=== PATIENT | female | born 1960 | race Two or more races ===

== ENCOUNTER 2021-04-22 22:34 | Emergency (ER) | payer MEDICAID, OTHER ==
[~2021-04-22] VITALS: Ht 154.9 cm; Wt 90.7 kg
[2021-04-22 23:50] LABS: Basophils # (auto) 0.1 10 ^3/uL (0-0.2); Basophils % (auto) 0.7 % (0.0-2.0); Eosinophils # (auto) 0.2 10 ^3/uL (0-0.8); Eosinophils % (auto) 2.3 % (0.0-7.0); Hematocrit 35.1 % (36.0-46.0); Hemoglobin 11.7 g/dL (12.2-16.2); Lymphocytes # (auto) 2.4 10 ^3/uL (0.4-5.4); Lymphocytes % (auto) 29.1 % (10.0-50.0); Mean Corpuscular Hemoglobin 33.6 pg (28.0-32.0); Mean Corpuscular Hgb Conc. 33.4 g/dL (32.0-36.0); Mean Corpuscular Volume 100.5 fL (80.0-100.0); Monocytes # (auto) 0.7 10 ^3/uL (0-1.3); Monocytes % (auto) 8.5 % (0.0-12.0); Neutrophils # (auto) 4.9 10 ^3/uL (1.6-8.6); Neutrophils % (auto) 59.4 % (37.0-80.0); Nucleated Red Blood Cells % 0.2 %; Platelet Count (auto) 317 10^3/uL (140-450); Red Blood Cells 3.49 10^6/uL (4.0-5.20); White Blood Cell 8.3 10^3/uL (4.4-10.8)
[2021-04-23 00:02] LABS: Urine Amorphous Crystal FEW /hpf (None Seen); Urine Bacteria FEW /hpf (None Seen); Urine Blood Negative /uL (Negative); Urine Hyaline Cast FEW /lpf (0 - 2); Urine Mucus FEW (None Seen); Urine Specific Gravity 1.025 (1.001-1.035); Urine WBC 52 /hpf (0 - 5)
[2021-04-23 00:10] LABS: Alanine Aminotransferase 137 U/L (13-56); Albumin 3.8 g/dL (3.4-5.0); Amylase 95 U/L (25-115); Anion Gap 7 (5-15); Aspartate Aminotransferase 195 U/L (15-37); BUN/Creatinine Ratio 22.7; Blood Urea Nitrogen 27 mg/dL (7-18); Calcium 8.9 mg/dL (8.5-10.1); Carbon Dioxide 25 mmol/L (21-32); Chloride 105 mmol/L (98-107); GFR African American 59 mL/min; GFR Non-African American 49 mL/min; Glucose 115 mg/dL (74-106); Lipase 351 U/L (73-393); Potassium 4.6 mmol/L (3.5-5.1); Sodium 137 mmol/L (136-145)
[2021-04-23 00:15] LABS: Alkaline Phosphatase 108 U/L (45-117); Bilirubin, Total 0.5 mg/dL (0.2-1.0); Total Protein 7.2 g/dL (6.4-8.2)
[2021-04-23 01:27] VITALS: BP 112/72
== END 2021-04-23 02:35 | disposition home or self-care (01) ==
LOC: EDBD 22:34 → ER 22:39
DX: N20.0 Calculus of kidney (principal); N39.0 Urinary tract infection, site not specified; I10 Essential (primary) hypertension; Z90.49 Acquired absence of other specified parts of digestive tract; Z88.1 Allergy status to other antibiotic agents; Z88.6 Allergy status to analgesic agent
CPT/HCPCS: 36415; 71045; 74176; 80053; 81001; 82150; 83605; 83690; 84484; 85025; 87086; 93005

== ENCOUNTER 2021-05-17 22:44 | Inpatient (IN) | payer MEDICAID ==
[~2021-05-17] VITALS: Ht 154.9 cm; Wt 89.5 kg
[2021-05-17 23:36] LABS: Eosinophils # (auto) 0 10 ^3/uL (0-0.8); Eosinophils % (auto) 0.6 % (0.0-7.0); Mean Corpuscular Hemoglobin 34.4 pg (28.0-32.0); Mean Corpuscular Hgb Conc. 34.2 g/dL (32.0-36.0); Monocytes # (auto) 0.4 10 ^3/uL (0-1.3); Neutrophils # (auto) 5.4 10 ^3/uL (1.6-8.6); Platelet Count (auto) 355 10^3/uL (140-450); White Blood Cell 8.1 10^3/uL (4.4-10.8)
[2021-05-17 23:37] LABS: Basophils # (auto) 0 10 ^3/uL (0-0.2); Basophils % (auto) 0.5 % (0.0-2.0); Hematocrit 35.5 % (36.0-46.0); Hemoglobin 12.1 g/dL (12.2-16.2); Lymphocytes # (auto) 2.2 10 ^3/uL (0.4-5.4); Lymphocytes % (auto) 26.8 % (10.0-50.0); Mean Corpuscular Volume 100.5 fL (80.0-100.0); Monocytes % (auto) 5.6 % (0.0-12.0); Neutrophils % (auto) 66.5 % (37.0-80.0); Nucleated Red Blood Cells % 0.1 %; Red Blood Cells 3.53 10^6/uL (4.0-5.20); Red Cell Distribution Width 15.6 % (11.8-14.3)
[2021-05-17 23:53] LABS: BUN/Creatinine Ratio 23.4; Calcium 9.2 mg/dL (8.5-10.1); Potassium 3.8 mmol/L (3.5-5.1)
[2021-05-17 23:56] LABS: Total Protein 7.3 g/dL (6.4-8.2)
[2021-05-18] VITALS (23 sets, daily range): BP systolic 83–195; BP diastolic 37–185
[2021-05-18 00:07] LABS: Urine Bacteria FEW /hpf (None Seen); Urine Blood Negative /uL (Negative); Urine Mucus FEW (None Seen); Urine Specific Gravity 1.028 (1.001-1.035); Urine WBC 10 /hpf (0 - 5)
[2021-05-18] MEDS ORDERED: ONDANSETRON HCL 4 MG/2 ML VIAL IV ONE ×3 (01:00→03:45)
[2021-05-18] MEDS ORDERED: MORPHINE SULFATE 4 MG/ML SYR/VIAL IV ONE ×3 (01:00→05:15)
[2021-05-18] MEDS ORDERED: ALUM & MAG HYDROX-SIMETH LIQ(MAALOX) 30 ML PO ONE (01:15)
[2021-05-18] MEDS ORDERED: FAMOTIDINE (10MG/ML) 2ML VL IV ONE (01:15)
[2021-05-18] MEDS ORDERED: LIDOCAINE VISCOUS 2% 15ML UD PO ONE (01:15)
[2021-05-18] MEDS ORDERED: DONNATAL 5ml ORAL Elix (BELLADONNA ALK-PHENOBARB) PO ONE (01:15)
[2021-05-18 04:28] LABS: Amylase 87 U/L (25-115); Lipase 427 U/L (73-393)
[2021-05-18] MEDS ORDERED: DOCUSATE SOD 100 MG CAP PO PRN (06:00)
[2021-05-18] MEDS ORDERED: NITROGLYCERIN 0.4 MG SL TAB SL PRN (06:00)
[2021-05-18] MEDS ORDERED: SODIUM CHLORIDE 0.9% 1,000 ML IV SCH (06:00)
[2021-05-18] MEDS ORDERED: ACETAMINOPHEN 325 MG TAB PO PRN (06:00)
[2021-05-18] MEDS ORDERED: MORPHINE SULF INJ 2 MG/ML SYRINGE 1ML IV PRN (06:00)
[2021-05-18] MEDS ORDERED: hydrALAZINE HCL 20 MG/ML VL IV PRN (06:15)
[2021-05-18 07:41] LABS: Basophils # (auto) 0 10 ^3/uL (0-0.2); Eosinophils # (auto) 0 10 ^3/uL (0-0.8); Hemoglobin 12.8 g/dL (12.2-16.2); Monocytes # (auto) 0 10 ^3/uL (0-1.3); Nucleated Red Blood Cells % 0.1 %; Red Cell Distribution Width 15.7 % (11.8-14.3); White Blood Cell 3.7 10^3/uL (4.4-10.8)
[2021-05-18 07:43] LABS: Basophils % (auto) 1.2 % (0.0-2.0); Hematocrit 37.5 % (36.0-46.0); Lymphocytes # (auto) 0.5 10 ^3/uL (0.4-5.4); Lymphocytes % (auto) 13.6 % (10.0-50.0); Mean Corpuscular Hemoglobin 34.4 pg (28.0-32.0); Mean Corpuscular Hgb Conc. 34.1 g/dL (32.0-36.0); Mean Corpuscular Volume 100.9 fL (80.0-100.0); Monocytes % (auto) 0.7 % (0.0-12.0); Neutrophils # (auto) 3.1 10 ^3/uL (1.6-8.6); Neutrophils % (auto) 83.5 % (37.0-80.0); Platelet Count (auto) 334 10^3/uL (140-450); Red Blood Cells 3.72 10^6/uL (4.0-5.20)
[2021-05-18 07:58] LABS: Albumin 3.9 g/dL (3.4-5.0); Calcium 9.3 mg/dL (8.5-10.1); Potassium 3.3 mmol/L (3.5-5.1)
[2021-05-18] MEDS ORDERED: PROMETHAZINE HCL 25 MG/ML 1ML IV ONE (08:00)
[2021-05-18 08:07] LABS: BUN/Creatinine Ratio 19.7; Bilirubin, Total 3.9 mg/dL (0.2-1.0); Total Protein 7.1 g/dL (6.4-8.2)
[2021-05-18] MEDS ORDERED: ACETAMINOPHEN 650 MG RECT SUPP PR ONE ×2 (08:22→08:30)
[2021-05-18] MEDS ORDERED: POTASSIUM CHLORIDE 40 MEQ, LIDOCAINE 1% (LOCAL ANESTH.) 4 ML in SODIUM CHL 0.9% 250 ML IV ONE (09:00)
[2021-05-18] MEDS ORDERED: cefTRIAXone 1GM/50ML D5W 50 ML IV SCH (09:00)
[2021-05-18] MEDS: ZINC SULFATE 220mg CAP or TAB PO SCH (09:31)
[2021-05-18] MEDS: MULTIPLE VITAMIN TAB PO SCH (09:31)
[2021-05-18] MEDS: ASCORBIC ACID 500 MG TAB PO SCH ×2 (09:31→22:00)
[2021-05-18 09:54] LABS: Lactic Acid w/Reflex 4.5 mmol/L (0.4-2.0)
[2021-05-18] MEDS ORDERED: LISINOPRIL 10 MG TAB PO SCH (10:00)
[2021-05-18] MEDS ORDERED: FAMOTIDINE (10MG/ML) 2ML VL IV SCH (10:00)
[2021-05-18] MEDS: HEPARIN SODIUM (PORCINE) 5000 UNITS/ML 1ML VIAL SC SCH ×2 (10:08→22:00)
[2021-05-18] MEDS ORDERED: NOREPINEPHRINE 8 MG/250ML KIT 250 ML IV ONE (12:56)
[2021-05-18] MEDS: NOREPINEPHRINE 8 MG/250ML KIT 250 ML IV SCH ×2 (13:07→18:30)
[2021-05-18] MEDS ORDERED: CEFEPIME 1 GM in SODIUM CHL 0.9% 50 ML IV ONE (14:15)
[2021-05-18] MEDS ORDERED: LACTATED RINGER'S 1,000 ML IV SCH (14:15)
[2021-05-18] MEDS: MORPHINE SULF INJ 2 MG/ML SYRINGE 1ML IV PRN (15:13)
[2021-05-18] MEDS ORDERED: EPINEPHrine HCL 250 ML IV ONE (16:10)
[2021-05-18] MEDS: EPINEPHrine HCL 250 ML IV SCH ×2 (16:17→18:30)
[2021-05-18] MEDS ORDERED: SUCCINYLCHOLINE CHLORIDE 20 MG/ML 10ML VIAL IV ONE ×3 (16:42→17:00)
[2021-05-18] MEDS ORDERED: ETOMIDATE (2MG/ML) 20ML VIAL IV ONE ×3 (16:42→17:00)
[2021-05-18 16:44] LABS: Alcohol, Urine < 3.0 mg/dL (0-10); Amphetamine Screen, Urine NEGATIVE (NEGATIVE); Barbiturate Scree,Urine NEGATIVE (NEGATIVE); Benzodiazephine Screen, Urine NEGATIVE (NEGATIVE); Cannabinoid Screen, Urine NEGATIVE (NEGATIVE); Cocaine Screen, Urine NEGATIVE (NEGATIVE); Phencyclidine Screen, Urine NEGATIVE (NEGATIVE)
[2021-05-18] MEDS ORDERED: MIDAZOLAM DRIP 50 mg/50mL 50 ML IV ONE (16:44)
[2021-05-18] MEDS ORDERED: MIDAZOLAM DRIP 50 mg/50mL 50 ML IV SCH (16:45)
[2021-05-18] MEDS: MIDAZOLAM DRIP 50 mg/50mL 50 ML IV SCH ×2 (16:49→18:30)
[2021-05-18 16:53] LABS: Opiate Scree,Urine POSITIVE (NEGATIVE)
[2021-05-18] MEDS ORDERED: fentaNYL Drip 2500mCg/250mlNS 250 ML IV ONE (16:59)
[2021-05-18] MEDS: fentaNYL Drip 2500mCg/250mlNS 250 ML IV SCH ×2 (17:27→18:30)
[2021-05-18] MEDS: VASOPRESSIN 50 UNITS in D5W 5% 247.5 ML IV SCH ×2 (17:48→18:30)
[2021-05-18] MEDS ORDERED: PHENYLEPHRINE IV 250 ML IV SCH (18:15)
[2021-05-18] MEDS ORDERED: SODIUM BICARBONATE 8.4% INJ 50ML SYRINGE ONE (18:20)
[2021-05-18] MEDS ORDERED: PHENYLEPHRINE IV 250 ML IV ONE ×2 (18:39→22:33)
[2021-05-18] MEDS ORDERED: SODIUM BICARBONATE 8.4 % INJ 50ML VIAL IV ONE (18:45)
[2021-05-18] MEDS: LINEZOLID 600MG/300ML 300 ML IV SCH (19:00)
[2021-05-18] MEDS: SODIUM BICARBONATE 50ML VIAL 150 ML in D5W 5% 1,000 ML IV SCH ×2 (19:00→20:00)
[2021-05-18] MEDS: SODIUM BICARBONATE 8.4% INJ 50ML SYRINGE ONE ×2 (19:06→19:14)
[2021-05-18 19:40] LABS: Lactic Acid w/Reflex 13.3 mmol/L (0.4-2.0)
[2021-05-18 19:47] LABS: INR 1.2 (0.9-1.15); Partial Thromboplastin Time 35.5 sec (23.0-31.2)
[2021-05-18] MEDS: EPINEPHrine HCL INJECTION 8 MG in D5W 5% 242 ML IV SCH (20:00)
[2021-05-18] MEDS: NOREPINEPHRINE BITARTRATE 16 MG in SODIUM CHL 0.9% 234 ML IV SCH (20:00)
[2021-05-18 20:52] LABS: Basophils # (auto) 0 10 ^3/uL (0-0.2); Eosinophils # (auto) 0.1 10 ^3/uL (0-0.8); Monocytes # (auto) 0.2 10 ^3/uL (0-1.3); Monocytes % (auto) 1.2 % (0.0-12.0); Neutrophils # (auto) 13.4 10 ^3/uL (1.6-8.6); Red Blood Cells 3.23 10^6/uL (4.0-5.20)
[2021-05-18 20:54] LABS: Basophils % (auto) 0.3 % (0.0-2.0); Eosinophils % (auto) 0.8 % (0.0-7.0); Hemoglobin 11.1 g/dL (12.2-16.2); Lymphocytes % (auto) 6.5 % (10.0-50.0); Mean Corpuscular Hemoglobin 34.3 pg (28.0-32.0); Mean Corpuscular Hgb Conc. 32.5 g/dL (32.0-36.0); Mean Corpuscular Volume 105.5 fL (80.0-100.0); Neutrophils % (auto) 91.2 % (37.0-80.0); Nucleated Red Blood Cells % 0.2 %; Platelet Count (auto) 316 10^3/uL (140-450); Red Cell Distribution Width 16.7 % (11.8-14.3); White Blood Cell 14.7 10^3/uL (4.4-10.8)
[2021-05-18 20:57] LABS: Albumin 2.4 g/dL (3.4-5.0); BUN/Creatinine Ratio 9.7; Calcium 7.3 mg/dL (8.5-10.1); Magnesium 1.5 mg/dL (1.6-2.6); Potassium 3.5 mmol/L (3.5-5.1)
[2021-05-18 21:00] LABS: Bilirubin, Total 3.2 mg/dL (0.2-1.0); Lactic Acid w/Reflex 14.4 mmol/L (0.4-2.0); Total Protein 5.3 g/dL (6.4-8.2)
[2021-05-18 21:08] LABS: INR 1.2 (0.9-1.15); Partial Thromboplastin Time 33.6 sec (23.0-31.2)
[2021-05-18] MEDS: CEFEPIME 1 GM in SODIUM CHL 0.9% 50 ML IV SCH (22:00)
[2021-05-18] MEDS: HYDROCORTISONE SOD SUCC 100 MG/2ML INJ VIAL IV SCH (22:00)
[2021-05-18] MEDS ORDERED: PHENYLEPHRINE HCL 10 MG/ML VL ONE (22:33)
[2021-05-18] MEDS: PHENYLEPHRINE INJ 40 MG in SODIUM CHL 0.9% 246 ML IV SCH (22:48)
[2021-05-18] MEDS ORDERED: MAGNESIUM SULFATE 1GM/100ML 200 ML IV ONE (23:30)
[2021-05-19] VITALS (85 sets, daily range): BP systolic 81–181; BP diastolic 46–154
[2021-05-19] MEDS ORDERED: SODIUM BICARBONATE 8.4 % INJ 50ML VIAL IV ONE (02:15)
[2021-05-19] MEDS: MAGNESIUM SULFATE 1GM/100ML 100 ML IV SCH ×2 (03:00→04:00)
[2021-05-19 04:43] LABS: Hematocrit 34.4 % (36.0-46.0); Hemoglobin 11.7 g/dL (12.2-16.2); Mean Corpuscular Hemoglobin 34.9 pg (28.0-32.0); Mean Corpuscular Hgb Conc. 34.1 g/dL (32.0-36.0); Mean Corpuscular Volume 102.3 fL (80.0-100.0); Platelet Count (auto) 275 10^3/uL (140-450); Red Blood Cells 3.36 10^6/uL (4.0-5.20); Red Cell Distribution Width 16.3 % (11.8-14.3); White Blood Cell 15.9 10^3/uL (4.4-10.8)
[2021-05-19 04:59] LABS: INR 1.34 (0.9-1.15); Partial Thromboplastin Time 34.6 sec (23.0-31.2)
[2021-05-19 05:02] LABS: Basophils % (manual) 0 (0.0-2.0); Blast Cells 0; Eosinophils % (manual) 0 (0-7); Promyelocytes % 0; Reactive Lymphocytes 0
[2021-05-19 05:14] LABS: Albumin 2.4 g/dL (3.4-5.0); Amylase 499 U/L (25-115); Anion Gap 21 (5-15); Blood Urea Nitrogen 39 mg/dL (7-18); Calcium 7.1 mg/dL (8.5-10.1); Carbon Dioxide 14 mmol/L (21-32); Chloride 105 mmol/L (98-107); Glucose 381 mg/dL (74-106); Potassium 3.5 mmol/L (3.5-5.1); Sodium 140 mmol/L (136-145)
[2021-05-19 05:23] LABS: Alanine Aminotransferase 454 U/L (13-56); Alkaline Phosphatase 175 U/L (45-117); Aspartate Aminotransferase 361 U/L (15-37); Bilirubin, Total 3.1 mg/dL (0.2-1.0); GFR African American 17 mL/min; GFR Non-African American 14 mL/min; Lipase 1509 U/L (73-393); Total Protein 5.2 g/dL (6.4-8.2)
[2021-05-19 05:30] LABS: CRP High Sensitivity > 19 mg/dL (< 0.3)
[2021-05-19] MEDS: LINEZOLID 600MG/300ML 300 ML IV SCH ×3 (07:00→07:08)
[2021-05-19] MEDS: MIDAZOLAM DRIP 50 mg/50mL 50 ML IV SCH ×5 (07:09→22:30)
[2021-05-19 07:16] LABS: Band Neutrophils % (manual) 37; Lymphocytes % (manual) 1 (10.0-50.0); Metamyelocytes % 1; Monocytes % (manual) 5 (0-12); Myelocytes % 3
[2021-05-19] MEDS ORDERED: VASOPRESSIN 20 UNIT/ML ONE (07:29)
[2021-05-19] MEDS: NOREPINEPHRINE BITARTRATE 16 MG in SODIUM CHL 0.9% 234 ML IV SCH ×2 (07:30→14:42)
[2021-05-19] MEDS: VASOPRESSIN 50 UNITS in D5W 5% 247.5 ML IV SCH (07:40)
[2021-05-19] MEDS: CEFEPIME 1 GM in SODIUM CHL 0.9% 50 ML IV SCH ×2 (09:26→22:00)
[2021-05-19] MEDS: HYDROCORTISONE SOD SUCC 100 MG/2ML INJ VIAL IV SCH ×2 (09:34→22:23)
[2021-05-19] MEDS: FAMOTIDINE (10MG/ML) 2ML VL IV SCH (09:34)
[2021-05-19] MEDS: ASCORBIC ACID 500 MG TAB PO SCH ×2 (10:00→22:23)
[2021-05-19] MEDS: ZINC SULFATE 220mg CAP or TAB PO SCH (10:00)
[2021-05-19] MEDS: MULTIPLE VITAMIN TAB PO SCH (10:00)
[2021-05-19] MEDS ORDERED: OPTISON 3ml Vial for INJ IV ONE (10:49)
[2021-05-19] MEDS: HEPARIN SODIUM (PORCINE) 5000 UNITS/ML 1ML VIAL SC SCH ×2 (10:49→22:24)
[2021-05-19] MEDS ORDERED: DEXTROSE (50%) 50ML SYRG IV PRN (11:45)
[2021-05-19] MEDS ORDERED: INSULIN LANTUS (GLARGINE) 1 /0.01ml (100units/ml) SC ONE (11:45)
[2021-05-19] MEDS: ACCU-CHEK COMFORT CURVE STRIP VI SCH ×8 (11:55→22:52)
[2021-05-19 12:20] LABS: BUN/Creatinine Ratio 11.9; Calcium 7.4 mg/dL (8.5-10.1); Potassium 3.2 mmol/L (3.5-5.1)
[2021-05-19] MEDS: InsuLIN R (HUMAN) 100 UNITS in SODIUM CHL 0.9% 99 ML IV SCH ×3 (12:34→18:30)
[2021-05-19] MEDS: PHENYLEPHRINE INJ 40 MG in SODIUM CHL 0.9% 246 ML IV SCH ×2 (12:40→16:00)
[2021-05-19] MEDS: SODIUM BICARBONATE 50ML VIAL 150 ML in D5W 5% 1,000 ML IV SCH ×2 (14:30→22:00)
[2021-05-19] MEDS: EPINEPHrine HCL INJECTION 8 MG in D5W 5% 242 ML IV SCH (16:00)
[2021-05-19] MEDS: SODIUM CHLORIDE 0.9% 1,000 ML IV SCH (17:30)
[2021-05-19] MEDS ORDERED: POTASSIUM CHL 10MEQ/100ML 300 ML IV PRN (17:45)
[2021-05-19] MEDS ORDERED: POTASSIUM CHL 20MEQ/100ML 100 ML IV PRN (17:45)
[2021-05-19] MEDS ORDERED: POTASSIUM CHL 20MEQ/100ML 200 ML IV PRN (17:45)
[2021-05-19] MEDS ORDERED: MAGNESIUM SULFATE 1GM/100ML 200 ML IV PRN (17:45)
[2021-05-19] MEDS: D5W/SOD CHL 0.45%/KCL 20MEQ 1,000 ML IV SCH (18:43)
[2021-05-19 18:57] LABS: Anion Gap 17 (5-15); BUN/Creatinine Ratio 11.7; Blood Urea Nitrogen 40 mg/dL (7-18); Calcium 6.8 mg/dL (8.5-10.1); Carbon Dioxide 21 mmol/L (21-32); Chloride 100 mmol/L (98-107); GFR African American 18 mL/min; GFR Non-African American 14 mL/min; Glucose 269 mg/dL (74-106); Potassium 3.9 mmol/L (3.5-5.1); Sodium 138 mmol/L (136-145)
[2021-05-19] MEDS: MUPIROCIN 2% OINT 15gm or 22gm EACHNOSTRI SCH (22:54)
[2021-05-19] MEDS ORDERED: SODIUM CHLORIDE 0.9% 1,000 ML IV SCH (23:45)
[2021-05-19 23:54] LABS: BUN/Creatinine Ratio 12.2; Calcium 6.8 mg/dL (8.5-10.1); Potassium 3.4 mmol/L (3.5-5.1)
[2021-05-20] VITALS (102 sets, daily range): BP systolic 80–175; BP diastolic 8–155
[2021-05-20] MEDS: ACCU-CHEK COMFORT CURVE STRIP VI SCH ×16 (00:08→22:34)
[2021-05-20] MEDS ORDERED: POTASSIUM CHL 20MEQ/100ML 0 ML IV ONE (00:11)
[2021-05-20] MEDS ORDERED: POTASSIUM CHL 10MEQ/100ML 100 ML IV PRN (01:45)
[2021-05-20] MEDS: CEFEPIME 1 GM in SODIUM CHL 0.9% 50 ML IV SCH ×2 (03:59→22:00)
[2021-05-20 04:22] LABS: BUN/Creatinine Ratio 12.5; Calcium 6.7 mg/dL (8.5-10.1); Potassium 3.9 mmol/L (3.5-5.1)
[2021-05-20] MEDS: fentaNYL Drip 2500mCg/250mlNS 250 ML IV SCH ×2 (04:35→20:10)
[2021-05-20] MEDS: D5W/SOD CHL 0.45%/KCL 20MEQ 1,000 ML IV SCH ×3 (07:05→15:24)
[2021-05-20] MEDS: SODIUM CHLORIDE 0.9% 1,000 ML IV SCH ×5 (07:05→22:00)
[2021-05-20 08:21] LABS: BUN/Creatinine Ratio 13.2; Calcium 6.8 mg/dL (8.5-10.1); Potassium 3.8 mmol/L (3.5-5.1)
[2021-05-20] MEDS: HEPARIN SODIUM (PORCINE) 5000 UNITS/ML 1ML VIAL SC SCH ×2 (10:01→22:33)
[2021-05-20] MEDS: ASCORBIC ACID 500 MG TAB PO SCH ×2 (10:02→22:33)
[2021-05-20] MEDS: ZINC SULFATE 220mg CAP or TAB PO SCH (10:02)
[2021-05-20] MEDS: INSULIN LANTUS (GLARGINE) 1 /0.01ml (100units/ml) SC SCH (10:02)
[2021-05-20] MEDS: MULTIPLE VITAMIN TAB PO SCH (10:02)
[2021-05-20] MEDS: MUPIROCIN 2% OINT 15gm or 22gm EACHNOSTRI SCH ×2 (10:02→22:00)
[2021-05-20] MEDS: FAMOTIDINE (10MG/ML) 2ML VL IV SCH (10:02)
[2021-05-20] MEDS: HYDROCORTISONE SOD SUCC 100 MG/2ML INJ VIAL IV SCH ×2 (10:02→22:32)
[2021-05-20] MEDS ORDERED: CALCIUM GLUC 1,000mg/50ml-NS 50 ML IV ONE (11:45)
[2021-05-20] MEDS: ALBUMIN 25% 50 ML IV SCH ×2 (11:58→20:23)
[2021-05-20] MEDS: MIDAZOLAM DRIP 50 mg/50mL 50 ML IV SCH ×3 (12:43→19:38)
[2021-05-20] MEDS: VASOPRESSIN 50 UNITS in D5W 5% 247.5 ML IV SCH (15:24)
[2021-05-20] MEDS: NOREPINEPHRINE BITARTRATE 16 MG in SODIUM CHL 0.9% 234 ML IV SCH (16:17)
[2021-05-20] MEDS: InsuLIN R (HUMAN) 100 UNITS in SODIUM CHL 0.9% 99 ML IV SCH (17:45)
[2021-05-20] MEDS: EPINEPHrine HCL INJECTION 8 MG in D5W 5% 242 ML IV SCH (20:00)
[2021-05-20] MEDS ORDERED: InsuLIN R (HUMAN) 100 UNITS in SODIUM CHL 0.9% 99 ML IV SCH (20:15)
[2021-05-21] VITALS (96 sets, daily range): BP systolic 82–166; BP diastolic 49–114
[2021-05-21] MEDS: CEFEPIME 1 GM in SODIUM CHL 0.9% 50 ML IV SCH ×2 (01:54→22:21)
[2021-05-21] MEDS: ACCU-CHEK COMFORT CURVE STRIP VI SCH ×11 (01:54→20:00)
[2021-05-21] MEDS: SODIUM CHLORIDE 0.9% 1,000 ML IV SCH ×5 (02:15→15:57)
[2021-05-21] MEDS: ALBUMIN 25% 50 ML IV SCH (03:13)
[2021-05-21] MEDS: MIDAZOLAM DRIP 50 mg/50mL 50 ML IV SCH ×3 (03:20→17:07)
[2021-05-21 03:57] LABS: Hematocrit 28.7 % (36.0-46.0); Mean Corpuscular Hemoglobin 34.1 pg (28.0-32.0); Mean Corpuscular Hgb Conc. 34.9 g/dL (32.0-36.0); White Blood Cell 16.4 10^3/uL (4.4-10.8)
[2021-05-21 04:02] LABS: Mean Corpuscular Volume 97.8 fL (80.0-100.0); Platelet Count (auto) 128 10^3/uL (140-450); Red Blood Cells 2.93 10^6/uL (4.0-5.20); Red Cell Distribution Width 16.4 % (11.8-14.3)
[2021-05-21 04:11] LABS: Albumin 2.1 g/dL (3.4-5.0); Calcium 7.4 mg/dL (8.5-10.1); Potassium 3.4 mmol/L (3.5-5.1)
[2021-05-21 04:13] LABS: Bilirubin, Total 1.7 mg/dL (0.2-1.0); Total Protein 5.2 g/dL (6.4-8.2)
[2021-05-21 04:43] LABS: Basophils % (manual) 0 (0.0-2.0); Blast Cells 0; Eosinophils % (manual) 0 (0-7); Myelocytes % 0; Promyelocytes % 0; Reactive Lymphocytes 0
[2021-05-21 05:44] LABS: Band Neutrophils % (manual) 31; Lymphocytes % (manual) 4 (10.0-50.0); Metamyelocytes % 1; Monocytes % (manual) 2 (0-12)
[2021-05-21] MEDS: ASCORBIC ACID 500 MG TAB PO SCH ×2 (09:33→22:20)
[2021-05-21] MEDS: HEPARIN SODIUM (PORCINE) 5000 UNITS/ML 1ML VIAL SC SCH ×2 (09:33→22:22)
[2021-05-21] MEDS: ZINC SULFATE 220mg CAP or TAB PO SCH (09:33)
[2021-05-21] MEDS: MULTIPLE VITAMIN TAB PO SCH (09:33)
[2021-05-21] MEDS: HYDROCORTISONE SOD SUCC 100 MG/2ML INJ VIAL IV SCH ×2 (09:33→22:20)
[2021-05-21] MEDS: FAMOTIDINE (10MG/ML) 2ML VL IV SCH (09:33)
[2021-05-21] MEDS: INSULIN LANTUS (GLARGINE) 1 /0.01ml (100units/ml) SC SCH (09:34)
[2021-05-21] MEDS: MUPIROCIN 2% OINT 15gm or 22gm EACHNOSTRI SCH ×2 (09:35→22:22)
[2021-05-21] MEDS ORDERED: DEXTROSE (50%) 50ML SYRG IV PRN (13:15)
[2021-05-21] MEDS: POTASSIUM CHL 20MEQ/100ML 100 ML IV SCH ×2 (13:30→15:04)
[2021-05-21] MEDS: InsuLIN REG 1unit/0.01ml Soln (100units/ml) SC SCH ×2 (16:00→20:00)
[2021-05-21] MEDS: VASOPRESSIN 50 UNITS in D5W 5% 247.5 ML IV SCH (16:15)
[2021-05-21] MEDS ORDERED: metroNIDAZOLE 500MG/100ML 100 ML IV ONE (16:45)
[2021-05-21] MEDS: fentaNYL Drip 2500mCg/250mlNS 250 ML IV SCH (17:05)
[2021-05-21] MEDS: metroNIDAZOLE 500MG/100ML 100 ML IV SCH (22:21)
[2021-05-22] VITALS (74 sets, daily range): BP systolic 96–159; BP diastolic 15–99
[2021-05-22] MEDS: ACCU-CHEK COMFORT CURVE STRIP VI SCH ×6 (04:00→20:00)
[2021-05-22] MEDS: InsuLIN REG 1unit/0.01ml Soln (100units/ml) SC SCH ×6 (04:00→20:00)
[2021-05-22 04:21] LABS: Basophils # (auto) 0 10 ^3/uL (0-0.2); Eosinophils # (auto) 0 10 ^3/uL (0-0.8); Hematocrit 26.9 % (36.0-46.0); Hemoglobin 9.5 g/dL (12.2-16.2); Monocytes # (auto) 0.5 10 ^3/uL (0-1.3); Nucleated Red Blood Cells % 0.1 %
[2021-05-22 04:24] LABS: Basophils % (auto) 0.3 % (0.0-2.0); Eosinophils % (auto) 0.2 % (0.0-7.0); Lymphocytes # (auto) 0.8 10 ^3/uL (0.4-5.4); Lymphocytes % (auto) 7.5 % (10.0-50.0); Mean Corpuscular Hemoglobin 34.9 pg (28.0-32.0); Mean Corpuscular Hgb Conc. 35.4 g/dL (32.0-36.0); Mean Corpuscular Volume 98.6 fL (80.0-100.0); Monocytes % (auto) 5.2 % (0.0-12.0); Neutrophils # (auto) 8.7 10 ^3/uL (1.6-8.6); Neutrophils % (auto) 86.8 % (37.0-80.0); Platelet Count (auto) 98 10^3/uL (140-450); Red Blood Cells 2.73 10^6/uL (4.0-5.20); Red Cell Distribution Width 16.2 % (11.8-14.3)
[2021-05-22 04:45] LABS: Potassium 3.3 mmol/L (3.5-5.1)
[2021-05-22 04:54] LABS: Albumin 2.1 g/dL (3.4-5.0); BUN/Creatinine Ratio 20.1; Bilirubin, Total 1.2 mg/dL (0.2-1.0); Calcium 7.4 mg/dL (8.5-10.1)
[2021-05-22] MEDS: metroNIDAZOLE 500MG/100ML 100 ML IV SCH ×3 (05:53→22:28)
[2021-05-22] MEDS ORDERED: POTASSIUM CHL 20MEQ/100ML 100 ML IV ONE (07:15)
[2021-05-22] MEDS: PHENYLEPHRINE INJ 40 MG in SODIUM CHL 0.9% 246 ML IV SCH (07:20)
[2021-05-22] MEDS: HYDROCORTISONE SOD SUCC 100 MG/2ML INJ VIAL IV SCH ×2 (09:47→22:28)
[2021-05-22] MEDS: MULTIPLE VITAMIN TAB PO SCH (09:47)
[2021-05-22] MEDS: ASCORBIC ACID 500 MG TAB PO SCH ×2 (09:48→22:28)
[2021-05-22] MEDS: ZINC SULFATE 220mg CAP or TAB PO SCH (09:49)
[2021-05-22] MEDS: FAMOTIDINE (10MG/ML) 2ML VL IV SCH (10:10)
[2021-05-22] MEDS: HEPARIN SODIUM (PORCINE) 5000 UNITS/ML 1ML VIAL SC SCH ×2 (10:11→22:32)
[2021-05-22] MEDS ORDERED: DEXTROSE (25%) 10 ML SYRG IV ONE (10:30)
[2021-05-22] MEDS: SODIUM CHLORIDE 0.9% 1,000 ML IV SCH ×2 (10:30→20:30)
[2021-05-22] MEDS ORDERED: DEXTROSE (50%) 50ML SYRG IV ONE (11:15)
[2021-05-22] MEDS: CEFEPIME 1 GM in SODIUM CHL 0.9% 50 ML IV SCH ×2 (11:24→22:27)
[2021-05-22] MEDS: MUPIROCIN 2% OINT 15gm or 22gm EACHNOSTRI SCH ×2 (11:24→22:32)
[2021-05-22] MEDS: VASOPRESSIN 50 UNITS in D5W 5% 247.5 ML IV SCH (16:15)
[2021-05-22] MEDS: fentaNYL Drip 2500mCg/250mlNS 250 ML IV SCH (17:15)
[2021-05-23] VITALS (121 sets, daily range): BP systolic 114–280; BP diastolic 54–258
[2021-05-23] MEDS: MORPHINE SULF INJ 2 MG/ML SYRINGE 1ML IV PRN ×5 (01:38→20:30)
[2021-05-23] MEDS: InsuLIN REG 1unit/0.01ml Soln (100units/ml) SC SCH ×6 (04:00→20:00)
[2021-05-23] MEDS: ACCU-CHEK COMFORT CURVE STRIP VI SCH ×6 (04:00→20:00)
[2021-05-23 04:18] LABS: Hematocrit 27.7 % (36.0-46.0); White Blood Cell 8.7 10^3/uL (4.4-10.8)
[2021-05-23 04:21] LABS: Hemoglobin 9.7 g/dL (12.2-16.2); Mean Corpuscular Hemoglobin 34.4 pg (28.0-32.0); Mean Corpuscular Hgb Conc. 34.9 g/dL (32.0-36.0); Mean Corpuscular Volume 98.6 fL (80.0-100.0); Platelet Count (auto) 93 10^3/uL (140-450); Red Blood Cells 2.81 10^6/uL (4.0-5.20); Red Cell Distribution Width 16.4 % (11.8-14.3)
[2021-05-23 04:30] LABS: Basophils % (manual) 0 (0.0-2.0); Blast Cells 0; Eosinophils % (manual) 0 (0-7); Metamyelocytes % 0; Myelocytes % 0; Promyelocytes % 0; Reactive Lymphocytes 0
[2021-05-23 04:37] LABS: Calcium 7.3 mg/dL (8.5-10.1); Potassium 3.6 mmol/L (3.5-5.1)
[2021-05-23 04:41] LABS: Albumin 2.1 g/dL (3.4-5.0); BUN/Creatinine Ratio 25.5
[2021-05-23 04:43] LABS: Bilirubin, Total 0.7 mg/dL (0.2-1.0); Total Protein 5.3 g/dL (6.4-8.2)
[2021-05-23] MEDS: SODIUM CHLORIDE 0.9% 1,000 ML IV SCH (05:00)
[2021-05-23 05:47] LABS: Band Neutrophils % (manual) 5; Lymphocytes % (manual) 8 (10.0-50.0); Monocytes % (manual) 4 (0-12)
[2021-05-23] MEDS: metroNIDAZOLE 500MG/100ML 100 ML IV SCH ×3 (06:01→22:10)
[2021-05-23] MEDS: PHENYLEPHRINE INJ 40 MG in SODIUM CHL 0.9% 246 ML IV SCH ×2 (08:00→10:47)
[2021-05-23] MEDS: EPINEPHrine HCL INJECTION 8 MG in D5W 5% 242 ML IV SCH ×2 (08:00→08:30)
[2021-05-23] MEDS: NOREPINEPHRINE BITARTRATE 16 MG in SODIUM CHL 0.9% 234 ML IV SCH ×2 (08:00→08:30)
[2021-05-23] MEDS: HYDROCORTISONE SOD SUCC 100 MG/2ML INJ VIAL IV SCH ×2 (09:30→22:10)
[2021-05-23] MEDS: MULTIPLE VITAMIN TAB PO SCH (09:30)
[2021-05-23] MEDS: CEFEPIME 1 GM in SODIUM CHL 0.9% 50 ML IV SCH ×2 (09:30→22:10)
[2021-05-23] MEDS: ASCORBIC ACID 500 MG TAB PO SCH ×2 (09:30→22:11)
[2021-05-23] MEDS: ZINC SULFATE 220mg CAP or TAB PO SCH (09:30)
[2021-05-23] MEDS: FAMOTIDINE (10MG/ML) 2ML VL IV SCH (09:30)
[2021-05-23] MEDS: MUPIROCIN 2% OINT 15gm or 22gm EACHNOSTRI SCH ×2 (09:30→22:18)
[2021-05-23] MEDS: HEPARIN SODIUM (PORCINE) 5000 UNITS/ML 1ML VIAL SC SCH ×2 (09:31→22:11)
[2021-05-23] MEDS: fentaNYL Drip 2500mCg/250mlNS 250 ML IV SCH (10:47)
[2021-05-23] MEDS: VASOPRESSIN 50 UNITS in D5W 5% 247.5 ML IV SCH (10:47)
[2021-05-23] MEDS: MIDAZOLAM DRIP 50 mg/50mL 50 ML IV SCH (10:47)
[2021-05-23] MEDS: SOD CHL 0.45% 1,000 ML IV SCH ×2 (13:00→23:01)
[2021-05-23] MEDS: ALPRAZolam 0.25 MG TAB NG PRN (15:34)
[2021-05-23] MEDS: METOPROLOL TARTRATE 1MG/1ML-5ML VIAL IV PRN ×3 (15:45→20:24)
[2021-05-23] MEDS ORDERED: METOPROLOL TARTRATE 1MG/1ML-5ML VIAL IV ONE (16:00)
[2021-05-24] VITALS (112 sets, daily range): BP systolic 97–234; BP diastolic 45–138
[2021-05-24] MEDS: ACCU-CHEK COMFORT CURVE STRIP VI SCH ×7 (04:00→23:40)
[2021-05-24] MEDS: InsuLIN REG 1unit/0.01ml Soln (100units/ml) SC SCH ×7 (04:00→23:40)
[2021-05-24] MEDS: ALPRAZolam 0.25 MG TAB NG PRN (04:39)
[2021-05-24] MEDS: MORPHINE SULF INJ 2 MG/ML SYRINGE 1ML IV PRN (05:09)
[2021-05-24 05:12] LABS: Potassium 3.3 mmol/L (3.5-5.1)
[2021-05-24] MEDS: METOPROLOL TARTRATE 1MG/1ML-5ML VIAL IV PRN (05:15)
[2021-05-24 05:19] LABS: Albumin 2.1 g/dL (3.4-5.0); BUN/Creatinine Ratio 31.3; Calcium 7.7 mg/dL (8.5-10.1)
[2021-05-24] MEDS: metroNIDAZOLE 500MG/100ML 100 ML IV SCH ×3 (05:19→21:29)
[2021-05-24 05:21] LABS: Bilirubin, Total 0.9 mg/dL (0.2-1.0); Total Protein 5.1 g/dL (6.4-8.2)
[2021-05-24] MEDS: SOD CHL 0.45% 1,000 ML IV SCH ×2 (09:00→17:51)
[2021-05-24] MEDS: POTASSIUM CHL 20MEQ/100ML 100 ML IV SCH ×2 (09:15→10:46)
[2021-05-24] MEDS: PHENYLEPHRINE INJ 40 MG in SODIUM CHL 0.9% 246 ML IV SCH (09:20)
[2021-05-24] MEDS: FAMOTIDINE (10MG/ML) 2ML VL IV SCH (09:55)
[2021-05-24] MEDS: HYDROCORTISONE SOD SUCC 100 MG/2ML INJ VIAL IV SCH ×2 (09:55→21:30)
[2021-05-24] MEDS: hydrALAZINE HCL 20 MG/ML VL IV PRN ×2 (09:56→17:51)
[2021-05-24] MEDS: ASCORBIC ACID 500 MG TAB PO SCH ×2 (09:56→21:30)
[2021-05-24] MEDS: MULTIPLE VITAMIN TAB PO SCH (09:56)
[2021-05-24] MEDS: HEPARIN SODIUM (PORCINE) 5000 UNITS/ML 1ML VIAL SC SCH ×2 (09:57→21:31)
[2021-05-24] MEDS: ZINC SULFATE 220mg CAP or TAB PO SCH (09:57)
[2021-05-24] MEDS: NOREPINEPHRINE BITARTRATE 16 MG in SODIUM CHL 0.9% 234 ML IV SCH ×2 (10:40→20:00)
[2021-05-24] MEDS: EPINEPHrine HCL INJECTION 8 MG in D5W 5% 242 ML IV SCH ×2 (10:40→20:00)
[2021-05-24] MEDS: MUPIROCIN 2% OINT 15gm or 22gm EACHNOSTRI SCH (10:46)
[2021-05-24] MEDS: CEFEPIME 1 GM in SODIUM CHL 0.9% 50 ML IV SCH ×2 (10:47→22:00)
[2021-05-24] MEDS: VASOPRESSIN 50 UNITS in D5W 5% 247.5 ML IV SCH (16:14)
[2021-05-24] MEDS: fentaNYL Drip 2500mCg/250mlNS 250 ML IV SCH (16:15)
[2021-05-24] MEDS: MIDAZOLAM DRIP 50 mg/50mL 50 ML IV SCH (16:15)
[2021-05-25] VITALS (107 sets, daily range): BP systolic 103–219; BP diastolic 49–111
[2021-05-25] MEDS: hydrALAZINE HCL 20 MG/ML VL IV PRN ×4 (01:18→21:58)
[2021-05-25] MEDS: MORPHINE SULF INJ 2 MG/ML SYRINGE 1ML IV PRN ×4 (01:48→21:57)
[2021-05-25] MEDS: PHENYLEPHRINE INJ 40 MG in SODIUM CHL 0.9% 246 ML IV SCH ×2 (02:00→17:50)
[2021-05-25] MEDS: InsuLIN REG 1unit/0.01ml Soln (100units/ml) SC SCH ×5 (04:18→20:00)
[2021-05-25] MEDS: ACCU-CHEK COMFORT CURVE STRIP VI SCH ×5 (04:19→20:00)
[2021-05-25 04:56] LABS: Hematocrit 29.5 % (36.0-46.0); Hemoglobin 10.1 g/dL (12.2-16.2); Mean Corpuscular Hemoglobin 34.4 pg (28.0-32.0); Mean Corpuscular Hgb Conc. 34.4 g/dL (32.0-36.0); Mean Corpuscular Volume 100.2 fL (80.0-100.0); Platelet Count (auto) 128 10^3/uL (140-450); Red Blood Cells 2.94 10^6/uL (4.0-5.20); Red Cell Distribution Width 16.8 % (11.8-14.3); White Blood Cell 13.3 10^3/uL (4.4-10.8)
[2021-05-25 04:58] LABS: Albumin 2.1 g/dL (3.4-5.0); BUN/Creatinine Ratio 35.5; Potassium 3.3 mmol/L (3.5-5.1)
[2021-05-25 05:01] LABS: Bilirubin, Total 0.8 mg/dL (0.2-1.0); Total Protein 5.4 g/dL (6.4-8.2)
[2021-05-25 05:08] LABS: Basophils % (manual) 0 (0.0-2.0); Blast Cells 0; Eosinophils % (manual) 0 (0-7); Metamyelocytes % 0; Myelocytes % 0; Promyelocytes % 0
[2021-05-25] MEDS: SOD CHL 0.45% 1,000 ML IV SCH ×3 (06:00→21:56)
[2021-05-25] MEDS: metroNIDAZOLE 500MG/100ML 100 ML IV SCH ×4 (06:17→21:55)
[2021-05-25 06:40] LABS: Band Neutrophils % (manual) 9; Lymphocytes % (manual) 13 (10.0-50.0); Monocytes % (manual) 4 (0-12); Reactive Lymphocytes 1
[2021-05-25] MEDS: POTASSIUM CHL 20MEQ/100ML 100 ML IV SCH ×2 (09:24→11:09)
[2021-05-25] MEDS: CEFEPIME 1 GM in SODIUM CHL 0.9% 50 ML IV SCH ×2 (11:01→22:30)
[2021-05-25] MEDS: ZINC SULFATE 220mg CAP or TAB PO SCH (11:03)
[2021-05-25] MEDS: MULTIPLE VITAMIN TAB PO SCH (11:03)
[2021-05-25] MEDS: ASCORBIC ACID 500 MG TAB PO SCH ×2 (11:03→21:54)
[2021-05-25] MEDS: HYDROCORTISONE SOD SUCC 100 MG/2ML INJ VIAL IV SCH ×2 (11:09→21:54)
[2021-05-25] MEDS: FAMOTIDINE (10MG/ML) 2ML VL IV SCH (11:09)
[2021-05-25] MEDS: HEPARIN SODIUM (PORCINE) 5000 UNITS/ML 1ML VIAL SC SCH ×2 (11:15→21:55)
[2021-05-25] MEDS: ONDANSETRON HCL 4 MG/2 ML VIAL IV PRN (11:18)
[2021-05-25] MEDS: LORazepam 2MG/ML-1ML VIAL IV PRN (14:26)
[2021-05-25] MEDS: fentaNYL Drip 2500mCg/250mlNS 250 ML IV SCH (15:15)
[2021-05-25] MEDS: VASOPRESSIN 50 UNITS in D5W 5% 247.5 ML IV SCH (16:15)
[2021-05-25] MEDS: MIDAZOLAM DRIP 50 mg/50mL 50 ML IV SCH (16:54)
[2021-05-25] MEDS: EPINEPHrine HCL INJECTION 8 MG in D5W 5% 242 ML IV SCH (19:25)
[2021-05-25] MEDS: NOREPINEPHRINE BITARTRATE 16 MG in SODIUM CHL 0.9% 234 ML IV SCH (19:25)
[2021-05-25] MEDS: TEMAZEPAM 15 MG CAP PO PRN (21:59)
[2021-05-26] VITALS (81 sets, daily range): BP systolic 91–206; BP diastolic 49–109
[2021-05-26] MEDS: InsuLIN REG 1unit/0.01ml Soln (100units/ml) SC SCH ×7 (04:00→23:29)
[2021-05-26] MEDS: ACCU-CHEK COMFORT CURVE STRIP VI SCH ×7 (04:00→23:29)
[2021-05-26 04:38] LABS: Hematocrit 28.6 % (36.0-46.0); Hemoglobin 9.8 g/dL (12.2-16.2); Mean Corpuscular Hemoglobin 34.5 pg (28.0-32.0); Mean Corpuscular Hgb Conc. 34.2 g/dL (32.0-36.0); Mean Corpuscular Volume 100.8 fL (80.0-100.0); Platelet Count (auto) 154 10^3/uL (140-450); Red Blood Cells 2.84 10^6/uL (4.0-5.20); Red Cell Distribution Width 17.7 % (11.8-14.3); White Blood Cell 13.6 10^3/uL (4.4-10.8)
[2021-05-26 04:41] LABS: Basophils % (manual) 0 (0.0-2.0); Blast Cells 0; Eosinophils % (manual) 0 (0-7); Promyelocytes % 0; Reactive Lymphocytes 0
[2021-05-26 04:49] LABS: Albumin 2.3 g/dL (3.4-5.0); Calcium 7.8 mg/dL (8.5-10.1); Potassium 3.7 mmol/L (3.5-5.1)
[2021-05-26 04:52] LABS: Bilirubin, Total 0.7 mg/dL (0.2-1.0); Total Protein 5.3 g/dL (6.4-8.2)
[2021-05-26 06:30] LABS: Band Neutrophils % (manual) 1; Lymphocytes % (manual) 6 (10.0-50.0); Metamyelocytes % 1; Monocytes % (manual) 3 (0-12); Myelocytes % 1
[2021-05-26] MEDS: ASCORBIC ACID 500 MG TAB PO SCH ×2 (09:53→22:00)
[2021-05-26] MEDS: HYDROCORTISONE SOD SUCC 100 MG/2ML INJ VIAL IV SCH ×2 (09:53→21:20)
[2021-05-26] MEDS: MULTIPLE VITAMIN TAB PO SCH (09:53)
[2021-05-26] MEDS: SOD CHL 0.45% 1,000 ML IV SCH (09:53)
[2021-05-26] MEDS: FAMOTIDINE (10MG/ML) 2ML VL IV SCH (09:53)
[2021-05-26] MEDS: ZINC SULFATE 220mg CAP or TAB PO SCH (09:53)
[2021-05-26] MEDS: hydrALAZINE HCL 20 MG/ML VL IV PRN ×3 (09:55→23:21)
[2021-05-26] MEDS: LORazepam 2MG/ML-1ML VIAL IV PRN ×2 (09:56→21:20)
[2021-05-26] MEDS: HEPARIN SODIUM (PORCINE) 5000 UNITS/ML 1ML VIAL SC SCH ×2 (10:07→21:24)
[2021-05-26] MEDS: PHENYLEPHRINE INJ 40 MG in SODIUM CHL 0.9% 246 ML IV SCH (11:20)
[2021-05-26] MEDS: CEFEPIME 1 GM in SODIUM CHL 0.9% 50 ML IV SCH ×2 (11:30→23:09)
[2021-05-26] MEDS ORDERED: SODIUM BICARBONATE 8.4 % INJ 50ML VIAL IV ONE (12:30)
[2021-05-26] MEDS ORDERED: EPINEPHrine HCL 0.5 ML NEB NEB PRN (12:30)
[2021-05-26] MEDS ORDERED: EPINEPHrine HCL 0.5 ML NEB NEB ONE (13:15)
[2021-05-26] MEDS ORDERED: EPINEPHrine HCL 0.5 ML NEB ONE (13:18)
[2021-05-26] MEDS: metroNIDAZOLE 500MG/100ML 100 ML IV SCH ×2 (13:29→21:21)
[2021-05-26] MEDS: MORPHINE SULF INJ 2 MG/ML SYRINGE 1ML IV PRN (15:01)
[2021-05-26] MEDS: VASOPRESSIN 50 UNITS in D5W 5% 247.5 ML IV SCH (16:15)
[2021-05-26] MEDS: MIDAZOLAM DRIP 50 mg/50mL 50 ML IV SCH (17:00)
[2021-05-26] MEDS: fentaNYL Drip 2500mCg/250mlNS 250 ML IV SCH (17:02)
[2021-05-26] MEDS: LABETALOL HCL 5 MG/ML 4ML SYRINGE IV PRN ×2 (17:12→21:21)
[2021-05-26] MEDS: ONDANSETRON HCL 4 MG/2 ML VIAL IV PRN (19:33)
[2021-05-26] MEDS: EPINEPHrine HCL INJECTION 8 MG in D5W 5% 242 ML IV SCH (20:00)
[2021-05-26] MEDS: NOREPINEPHRINE BITARTRATE 16 MG in SODIUM CHL 0.9% 234 ML IV SCH (20:00)
[2021-05-27] VITALS (53 sets, daily range): BP systolic 132–194; BP diastolic 67–101
[2021-05-27] MEDS: LABETALOL HCL 5 MG/ML 4ML SYRINGE IV PRN ×3 (02:31→10:03)
[2021-05-27] MEDS: PHENYLEPHRINE INJ 40 MG in SODIUM CHL 0.9% 246 ML IV SCH (04:00)
[2021-05-27] MEDS: InsuLIN REG 1unit/0.01ml Soln (100units/ml) SC SCH ×5 (04:00→20:00)
[2021-05-27] MEDS: ACCU-CHEK COMFORT CURVE STRIP VI SCH ×5 (04:08→20:28)
[2021-05-27 04:39] LABS: Basophils # (auto) 0 10 ^3/uL (0-0.2); Eosinophils # (auto) 0 10 ^3/uL (0-0.8); Lymphocytes % (auto) 5.5 % (10.0-50.0); Monocytes # (auto) 0.8 10 ^3/uL (0-1.3); Red Blood Cells 2.72 10^6/uL (4.0-5.20)
[2021-05-27 04:41] LABS: Basophils % (auto) 0.1 % (0.0-2.0); Hematocrit 27.4 % (36.0-46.0); Hemoglobin 9.4 g/dL (12.2-16.2); Lymphocytes # (auto) 0.8 10 ^3/uL (0.4-5.4); Mean Corpuscular Hemoglobin 34.8 pg (28.0-32.0); Mean Corpuscular Hgb Conc. 34.5 g/dL (32.0-36.0); Mean Corpuscular Volume 100.6 fL (80.0-100.0); Neutrophils # (auto) 13.6 10 ^3/uL (1.6-8.6); Neutrophils % (auto) 89.4 % (37.0-80.0); Platelet Count (auto) 201 10^3/uL (140-450); Red Cell Distribution Width 17.6 % (11.8-14.3); White Blood Cell 15.3 10^3/uL (4.4-10.8)
[2021-05-27 04:54] LABS: Albumin 2.6 g/dL (3.4-5.0); Calcium 8.1 mg/dL (8.5-10.1); Potassium 3.2 mmol/L (3.5-5.1)
[2021-05-27 04:59] LABS: BUN/Creatinine Ratio 32.1; Bilirubin, Total 0.7 mg/dL (0.2-1.0); Total Protein 5.7 g/dL (6.4-8.2)
[2021-05-27] MEDS: metroNIDAZOLE 500MG/100ML 100 ML IV SCH ×3 (05:18→20:29)
[2021-05-27] MEDS: hydrALAZINE HCL 20 MG/ML VL IV PRN (06:37)
[2021-05-27] MEDS: POTASSIUM CHL 20MEQ/100ML 100 ML IV SCH ×2 (08:06→09:51)
[2021-05-27] MEDS: SOD CHL 0.45% 1,000 ML IV SCH (09:24)
[2021-05-27] MEDS: FAMOTIDINE (10MG/ML) 2ML VL IV SCH (09:30)
[2021-05-27] MEDS: HYDROCORTISONE SOD SUCC 100 MG/2ML INJ VIAL IV SCH ×2 (09:30→22:01)
[2021-05-27] MEDS: CEFEPIME 1 GM in SODIUM CHL 0.9% 50 ML IV SCH ×2 (09:35→22:31)
[2021-05-27] MEDS: cloNIDine 0.2 mg/24hr 7DAY PATCH TD SCH (09:36)
[2021-05-27] MEDS: PANTOPRAZOLE 40 MG/10 ML VIAL INJ IV SCH ×2 (09:56→22:00)
[2021-05-27] MEDS: ZINC SULFATE 220mg CAP or TAB PO SCH (09:56)
[2021-05-27] MEDS: HEPARIN SODIUM (PORCINE) 5000 UNITS/ML 1ML VIAL SC SCH ×2 (09:56→22:07)
[2021-05-27] MEDS: ASCORBIC ACID 500 MG TAB PO SCH ×2 (09:57→22:03)
[2021-05-27] MEDS: CARVEDILOL 12.5 MG TAB PO SCH ×2 (09:57→22:03)
[2021-05-27] MEDS: MULTIPLE VITAMIN TAB PO SCH (09:57)
[2021-05-27] MEDS: hydrALAZINE HCL 25 MG TAB PO SCH ×2 (14:00→22:02)
[2021-05-27] MEDS: EPINEPHrine HCL INJECTION 8 MG in D5W 5% 242 ML IV SCH (19:57)
[2021-05-27] MEDS: LORazepam 2MG/ML-1ML VIAL IV PRN (20:30)
[2021-05-28] VITALS (82 sets, daily range): BP systolic 115–201; BP diastolic 58–103
[2021-05-28] MEDS: ACCU-CHEK COMFORT CURVE STRIP VI SCH ×6 (01:23→19:58)
[2021-05-28] MEDS: InsuLIN REG 1unit/0.01ml Soln (100units/ml) SC SCH ×6 (04:00→19:57)
[2021-05-28] MEDS: metroNIDAZOLE 500MG/100ML 100 ML IV SCH ×3 (06:09→21:00)
[2021-05-28] MEDS: hydrALAZINE HCL 25 MG TAB PO SCH ×3 (06:10→21:16)
[2021-05-28 08:24] LABS: Basophils # (auto) 0.1 10 ^3/uL (0-0.2); Basophils % (auto) 0.5 % (0.0-2.0); Eosinophils # (auto) 0 10 ^3/uL (0-0.8); Eosinophils % (auto) 0.1 % (0.0-7.0); Hematocrit 27.9 % (36.0-46.0); Hemoglobin 9.6 g/dL (12.2-16.2); Lymphocytes # (auto) 1.2 10 ^3/uL (0.4-5.4); Lymphocytes % (auto) 10.1 % (10.0-50.0); Mean Corpuscular Hgb Conc. 34.2 g/dL (32.0-36.0); Mean Corpuscular Volume 99.3 fL (80.0-100.0); Monocytes # (auto) 0.8 10 ^3/uL (0-1.3); Monocytes % (auto) 6.9 % (0.0-12.0); Neutrophils # (auto) 10.1 10 ^3/uL (1.6-8.6); Neutrophils % (auto) 82.4 % (37.0-80.0); Platelet Count (auto) 274 10^3/uL (140-450); Red Blood Cells 2.81 10^6/uL (4.0-5.20); Red Cell Distribution Width 17.9 % (11.8-14.3); White Blood Cell 12.2 10^3/uL (4.4-10.8)
[2021-05-28 08:42] LABS: Albumin 2.7 g/dL (3.4-5.0); Calcium 8.1 mg/dL (8.5-10.1); Magnesium 1.7 mg/dL (1.6-2.6)
[2021-05-28] MEDS: SOD CHL 0.45% 1,000 ML IV SCH (08:45)
[2021-05-28 08:46] LABS: BUN/Creatinine Ratio 24.4; Bilirubin, Total 0.8 mg/dL (0.2-1.0); Total Protein 5.8 g/dL (6.4-8.2)
[2021-05-28 08:54] LABS: Potassium 2.8 mmol/L (3.5-5.1)
[2021-05-28] MEDS ORDERED: POTASSIUM CHL 20MEQ/100ML 100 ML IV ONE (09:15)
[2021-05-28] MEDS: ASCORBIC ACID 500 MG TAB PO SCH ×2 (09:54→21:16)
[2021-05-28] MEDS: MULTIPLE VITAMIN TAB PO SCH (09:54)
[2021-05-28] MEDS: ZINC SULFATE 220mg CAP or TAB PO SCH (09:54)
[2021-05-28] MEDS: CARVEDILOL 12.5 MG TAB PO SCH ×2 (09:56→21:16)
[2021-05-28] MEDS: PANTOPRAZOLE 40 MG/10 ML VIAL INJ IV SCH ×2 (09:56→21:15)
[2021-05-28] MEDS: HYDROCORTISONE SOD SUCC 100 MG/2ML INJ VIAL IV SCH ×2 (09:56→21:15)
[2021-05-28] MEDS: HEPARIN SODIUM (PORCINE) 5000 UNITS/ML 1ML VIAL SC SCH ×2 (09:58→21:17)
[2021-05-28] MEDS ORDERED: NIFEdipine ER 30 MG TAB PO ONE (10:30)
[2021-05-28] MEDS: CEFEPIME 1 GM in SODIUM CHL 0.9% 50 ML IV SCH ×2 (10:33→21:53)
[2021-05-28] MEDS: LABETALOL HCL 5 MG/ML 4ML SYRINGE IV PRN (10:33)
[2021-05-28] MEDS ORDERED: POTASSIUM CHL 20 Meq TABLET PO ONE (12:15)
[2021-05-28 12:35] LABS: Amylase 164 U/L (25-115)
[2021-05-28] MEDS: POTASSIUM CHL 20MEQ/100ML 100 ML IV SCH ×2 (12:35→14:49)
[2021-05-28 12:41] LABS: Lipase 2225 U/L (73-393)
[2021-05-28] MEDS ORDERED: MAGNESIUM SULFATE 1GM/100ML 100 ML IV ONE (12:45)
[2021-05-28] MEDS: hydrALAZINE HCL 20 MG/ML VL IV PRN (13:36)
[2021-05-28] MEDS ORDERED: HYOSCYAMINE SULF 0.125 MG ODT TAB PO PRN (13:45)
[2021-05-28] MEDS: LORazepam 2MG/ML-1ML VIAL IV PRN (21:18)
[2021-05-28] MEDS: ONDANSETRON HCL 4 MG/2 ML VIAL IV PRN (21:48)
[2021-05-28 22:34] LABS: Potassium 3.2 mmol/L (3.5-5.1)
[2021-05-28 22:35] LABS: Magnesium 1.5 mg/dL (1.6-2.6)
[2021-05-29] VITALS (36 sets, daily range): BP systolic 106–166; BP diastolic 52–85
[2021-05-29] MEDS: hydrALAZINE HCL 20 MG/ML VL IV PRN (00:24)
[2021-05-29] MEDS: ACCU-CHEK COMFORT CURVE STRIP VI SCH ×7 (00:28→23:49)
[2021-05-29] MEDS: InsuLIN REG 1unit/0.01ml Soln (100units/ml) SC SCH ×7 (04:00→23:49)
[2021-05-29] MEDS: hydrALAZINE HCL 25 MG TAB PO SCH ×3 (05:34→22:19)
[2021-05-29] MEDS: metroNIDAZOLE 500MG/100ML 100 ML IV SCH ×3 (06:23→22:18)
[2021-05-29 07:40] LABS: Mean Corpuscular Hgb Conc. 35.2 g/dL (32.0-36.0); Red Cell Distribution Width 17.3 % (11.8-14.3)
[2021-05-29 07:41] LABS: Hematocrit 25.6 % (36.0-46.0); Mean Corpuscular Volume 99.5 fL (80.0-100.0); Platelet Count (auto) 416 10^3/uL (140-450); Red Blood Cells 2.57 10^6/uL (4.0-5.20); White Blood Cell 11.2 10^3/uL (4.4-10.8)
[2021-05-29 07:53] LABS: Band Neutrophils % (manual) 0; Basophils % (manual) 0 (0.0-2.0); Blast Cells 0; Eosinophils % (manual) 0 (0-7); Metamyelocytes % 0; Myelocytes % 0; Promyelocytes % 0; Reactive Lymphocytes 0
[2021-05-29 08:02] LABS: Albumin 2.4 g/dL (3.4-5.0); BUN/Creatinine Ratio 23.3; Magnesium 1.8 mg/dL (1.6-2.6); Potassium 3.4 mmol/L (3.5-5.1)
[2021-05-29 08:05] LABS: Bilirubin, Total 0.6 mg/dL (0.2-1.0); Total Protein 5.6 g/dL (6.4-8.2)
[2021-05-29] MEDS: SOD CHL 0.45% 1,000 ML IV SCH (08:45)
[2021-05-29 09:04] LABS: Lymphocytes % (manual) 12 (10.0-50.0); Monocytes % (manual) 4 (0-12)
[2021-05-29] MEDS ORDERED: NIFEdipine ER 30 MG TAB PO SCH (10:00)
[2021-05-29] MEDS ORDERED: POTASSIUM CHL 20 Meq TABLET PO ONE (10:00)
[2021-05-29] MEDS: MULTIPLE VITAMIN TAB PO SCH (10:12)
[2021-05-29] MEDS: NIFEdipine ER 30 MG TAB PO SCH (10:12)
[2021-05-29] MEDS: CARVEDILOL 12.5 MG TAB PO SCH ×2 (10:12→22:19)
[2021-05-29] MEDS: ASCORBIC ACID 500 MG TAB PO SCH ×2 (10:12→22:19)
[2021-05-29] MEDS: ZINC SULFATE 220mg CAP or TAB PO SCH (10:14)
[2021-05-29] MEDS: HYDROCORTISONE SOD SUCC 100 MG/2ML INJ VIAL IV SCH ×2 (10:15→22:18)
[2021-05-29] MEDS: PANTOPRAZOLE 40 MG/10 ML VIAL INJ IV SCH ×2 (10:15→22:18)
[2021-05-29] MEDS: CEFEPIME 1 GM in SODIUM CHL 0.9% 50 ML IV SCH ×2 (10:15→23:49)
[2021-05-29] MEDS: HEPARIN SODIUM (PORCINE) 5000 UNITS/ML 1ML VIAL SC SCH ×2 (10:16→22:22)
[2021-05-29] MEDS: VANCOMYCIN HCL 125MG/5ML ORAL SOL PO SCH ×2 (20:33→22:19)
[2021-05-29] MEDS: TEMAZEPAM 15 MG CAP PO PRN (22:24)
[2021-05-30] MEDS: InsuLIN REG 1unit/0.01ml Soln (100units/ml) SC SCH ×5 (04:00→20:00)
[2021-05-30] MEDS: ACCU-CHEK COMFORT CURVE STRIP VI SCH ×5 (04:16→20:00)
[2021-05-30 05:00] VITALS: BP 136/69
[2021-05-30] MEDS: metroNIDAZOLE 500MG/100ML 100 ML IV SCH ×4 (06:42→22:00)
[2021-05-30] MEDS: hydrALAZINE HCL 25 MG TAB PO SCH ×3 (06:42→23:19)
[2021-05-30] MEDS: VANCOMYCIN HCL 125MG/5ML ORAL SOL PO SCH ×4 (06:42→22:00)
[2021-05-30] MEDS: SOD CHL 0.45% 1,000 ML IV SCH (08:45)
[2021-05-30 09:00] VITALS: BP 161/82
[2021-05-30] MEDS: CEFEPIME 1 GM in SODIUM CHL 0.9% 50 ML IV SCH (09:59)
[2021-05-30] MEDS: PANTOPRAZOLE 40 MG/10 ML VIAL INJ IV SCH ×2 (09:59→23:17)
[2021-05-30] MEDS: HYDROCORTISONE SOD SUCC 100 MG/2ML INJ VIAL IV SCH ×2 (10:00→23:16)
[2021-05-30] MEDS: MULTIPLE VITAMIN TAB PO SCH (10:01)
[2021-05-30] MEDS: ZINC SULFATE 220mg CAP or TAB PO SCH (10:01)
[2021-05-30] MEDS: CARVEDILOL 12.5 MG TAB PO SCH ×2 (10:01→23:19)
[2021-05-30] MEDS: ASCORBIC ACID 500 MG TAB PO SCH ×2 (10:02→23:19)
[2021-05-30] MEDS: NIFEdipine ER 30 MG TAB PO SCH (10:02)
[2021-05-30] MEDS: HEPARIN SODIUM (PORCINE) 5000 UNITS/ML 1ML VIAL SC SCH ×2 (10:04→23:27)
[2021-05-30] MEDS: HYDROmorphone HCL 2 MG/ML VL IV PRN ×3 (11:03→21:02)
[2021-05-30 13:00] VITALS: BP 155/81
[2021-05-30 16:48] VITALS: BP 158/73
[2021-05-30 22:00] VITALS: BP 143/65
[2021-05-30] MEDS: ONDANSETRON HCL 4 MG/2 ML VIAL IV PRN (23:58)
[2021-05-31] MEDS: ACCU-CHEK COMFORT CURVE STRIP VI SCH ×6 (00:01→20:04)
[2021-05-31] MEDS: InsuLIN REG 1unit/0.01ml Soln (100units/ml) SC SCH ×6 (04:11→20:00)
[2021-05-31 05:00] VITALS: BP 147/81
[2021-05-31 05:25] LABS: Basophils # (auto) 0 10 ^3/uL (0-0.2); Basophils % (auto) 0.2 % (0.0-2.0); Eosinophils # (auto) 0 10 ^3/uL (0-0.8); Lymphocytes # (auto) 0.8 10 ^3/uL (0.4-5.4); Monocytes # (auto) 0.4 10 ^3/uL (0-1.3); White Blood Cell 8.3 10^3/uL (4.4-10.8)
[2021-05-31 05:28] LABS: Eosinophils % (auto) 0.3 % (0.0-7.0); Hematocrit 25.8 % (36.0-46.0); Hemoglobin 9.1 g/dL (12.2-16.2); Lymphocytes % (auto) 9.9 % (10.0-50.0); Mean Corpuscular Hgb Conc. 35.2 g/dL (32.0-36.0); Mean Corpuscular Volume 99.4 fL (80.0-100.0); Monocytes % (auto) 5.1 % (0.0-12.0); Neutrophils % (auto) 84.5 % (37.0-80.0); Nucleated Red Blood Cells % 0.1 %; Platelet Count (auto) 387 10^3/uL (140-450); Red Blood Cells 2.59 10^6/uL (4.0-5.20); Red Cell Distribution Width 17.7 % (11.8-14.3)
[2021-05-31 05:35] LABS: Calcium 8.1 mg/dL (8.5-10.1); Potassium 3.1 mmol/L (3.5-5.1)
[2021-05-31 05:38] LABS: BUN/Creatinine Ratio 16.8
[2021-05-31] MEDS: VANCOMYCIN HCL 125MG/5ML ORAL SOL PO SCH ×4 (06:00→21:58)
[2021-05-31] MEDS: hydrALAZINE HCL 25 MG TAB PO SCH ×3 (06:34→21:59)
[2021-05-31] MEDS: CEFEPIME 2 GM in SODIUM CHL 0.9% 50 ML IV SCH ×3 (08:02→16:41)
[2021-05-31 08:36] VITALS: BP 144/81
[2021-05-31] MEDS: MULTIPLE VITAMIN TAB PO SCH (11:02)
[2021-05-31] MEDS: PANTOPRAZOLE 40 MG/10 ML VIAL INJ IV SCH ×2 (11:02→21:58)
[2021-05-31] MEDS: HYDROCORTISONE SOD SUCC 100 MG/2ML INJ VIAL IV SCH ×2 (11:02→21:58)
[2021-05-31] MEDS: ZINC SULFATE 220mg CAP or TAB PO SCH (11:02)
[2021-05-31] MEDS: ASCORBIC ACID 500 MG TAB PO SCH ×2 (11:03→22:00)
[2021-05-31] MEDS: CARVEDILOL 12.5 MG TAB PO SCH ×2 (11:03→21:59)
[2021-05-31] MEDS: NIFEdipine ER 30 MG TAB PO SCH (11:03)
[2021-05-31] MEDS: HEPARIN SODIUM (PORCINE) 5000 UNITS/ML 1ML VIAL SC SCH ×2 (11:04→22:03)
[2021-05-31] MEDS: hydrALAZINE HCL 20 MG/ML VL IV PRN (12:13)
[2021-05-31 13:00] VITALS: BP 178/89
[2021-05-31] MEDS ORDERED: hydrALAZINE HCL 20 MG/ML VL IV PRN (14:00)
[2021-05-31] MEDS: metroNIDAZOLE 500MG/100ML 100 ML IV SCH ×2 (14:16→21:57)
[2021-05-31 16:53] VITALS: BP 148/68
[2021-05-31 22:00] VITALS: BP 167/92
[2021-05-31] MEDS: POTASSIUM CHL 20 Meq TABLET PO SCH (22:00)
[2021-05-31] MEDS: ONDANSETRON HCL 4 MG/2 ML VIAL IV PRN (22:21)
[2021-05-31] MEDS: HYDROmorphone HCL 2 MG/ML VL IV PRN (22:21)
[2021-06-01] MEDS: CEFEPIME 2 GM in SODIUM CHL 0.9% 50 ML IV SCH ×3 (00:37→17:26)
[2021-06-01] MEDS: ACCU-CHEK COMFORT CURVE STRIP VI SCH ×6 (03:52→22:29)
[2021-06-01] MEDS: InsuLIN REG 1unit/0.01ml Soln (100units/ml) SC SCH ×6 (03:54→20:00)
[2021-06-01 05:00] VITALS: BP 155/81
[2021-06-01] MEDS: hydrALAZINE HCL 25 MG TAB PO SCH ×3 (05:20→22:30)
[2021-06-01] MEDS: VANCOMYCIN HCL 125MG/5ML ORAL SOL PO SCH ×4 (05:20→22:28)
[2021-06-01] MEDS: metroNIDAZOLE 500MG/100ML 100 ML IV SCH ×4 (05:21→16:29)
[2021-06-01] MEDS: CARVEDILOL 12.5 MG TAB PO SCH ×2 (09:01→22:30)
[2021-06-01] MEDS: PANTOPRAZOLE 40 MG/10 ML VIAL INJ IV SCH ×2 (09:01→22:28)
[2021-06-01] MEDS: ZINC SULFATE 220mg CAP or TAB PO SCH (09:01)
[2021-06-01] MEDS: HYDROCORTISONE SOD SUCC 100 MG/2ML INJ VIAL IV SCH ×2 (09:01→22:39)
[2021-06-01] MEDS: ASCORBIC ACID 500 MG TAB PO SCH ×2 (09:02→22:29)
[2021-06-01] MEDS: NIFEdipine ER 30 MG TAB PO SCH (09:02)
[2021-06-01] MEDS: POTASSIUM CHL 20 Meq TABLET PO SCH ×2 (09:02→22:29)
[2021-06-01] MEDS: MULTIPLE VITAMIN TAB PO SCH (09:02)
[2021-06-01] MEDS: HEPARIN SODIUM (PORCINE) 5000 UNITS/ML 1ML VIAL SC SCH ×2 (09:02→22:32)
[2021-06-01] MEDS: ONDANSETRON HCL 4 MG/2 ML VIAL IV PRN ×2 (10:23→21:40)
[2021-06-01 13:00] VITALS: BP 158/75
[2021-06-01 17:00] VITALS: BP 154/88
[2021-06-01] MEDS: LORazepam 2MG/ML-1ML VIAL IV PRN (21:40)
[2021-06-01 22:10] VITALS: BP 156/83
[2021-06-02] MEDS: ACCU-CHEK COMFORT CURVE STRIP VI SCH ×6 (01:46→22:38)
[2021-06-02] MEDS: CEFEPIME 2 GM in SODIUM CHL 0.9% 50 ML IV SCH ×2 (01:46→09:11)
[2021-06-02] MEDS: InsuLIN REG 1unit/0.01ml Soln (100units/ml) SC SCH ×6 (04:00→22:00)
[2021-06-02 05:19] VITALS: BP 147/68
[2021-06-02] MEDS: hydrALAZINE HCL 25 MG TAB PO SCH ×3 (05:54→22:40)
[2021-06-02] MEDS: VANCOMYCIN HCL 125MG/5ML ORAL SOL PO SCH ×4 (05:54→22:38)
[2021-06-02 09:00] VITALS: BP 150/82
[2021-06-02] MEDS: HYDROCORTISONE SOD SUCC 100 MG/2ML INJ VIAL IV SCH ×2 (09:07→22:38)
[2021-06-02] MEDS: HEPARIN SODIUM (PORCINE) 5000 UNITS/ML 1ML VIAL SC SCH ×2 (09:08→22:43)
[2021-06-02] MEDS: ZINC SULFATE 220mg CAP or TAB PO SCH (09:09)
[2021-06-02] MEDS: MULTIPLE VITAMIN TAB PO SCH (09:09)
[2021-06-02] MEDS: NIFEdipine ER 30 MG TAB PO SCH (09:09)
[2021-06-02] MEDS: ASCORBIC ACID 500 MG TAB PO SCH ×2 (09:10→22:38)
[2021-06-02] MEDS: POTASSIUM CHL 20 Meq TABLET PO SCH ×2 (09:10→22:38)
[2021-06-02] MEDS: CARVEDILOL 12.5 MG TAB PO SCH ×2 (09:10→22:41)
[2021-06-02] MEDS: PANTOPRAZOLE 40 MG/10 ML VIAL INJ IV SCH ×2 (09:11→22:38)
[2021-06-02] MEDS: ONDANSETRON HCL 4 MG/2 ML VIAL IV PRN ×2 (09:30→21:17)
[2021-06-02] MEDS: HYDROmorphone HCL 2 MG/ML VL IV PRN (09:31)
[2021-06-02] MEDS: metroNIDAZOLE 500MG/100ML 100 ML IV SCH (13:30)
[2021-06-02 17:00] VITALS: BP 148/77
[2021-06-02] MEDS ORDERED: DEXTROSE (50%) 50ML SYRG IV PRN (20:30)
[2021-06-02] MEDS: LORazepam 2MG/ML-1ML VIAL IV PRN (21:16)
[2021-06-02 22:12] VITALS: BP 156/74
[2021-06-03 05:13] VITALS: BP 135/83
[2021-06-03] MEDS: InsuLIN REG 1unit/0.01ml Soln (100units/ml) SC SCH ×4 (06:06→22:00)
[2021-06-03] MEDS: ACCU-CHEK COMFORT CURVE STRIP VI SCH ×4 (06:06→23:21)
[2021-06-03] MEDS: hydrALAZINE HCL 25 MG TAB PO SCH ×3 (06:06→23:21)
[2021-06-03] MEDS: VANCOMYCIN HCL 125MG/5ML ORAL SOL PO SCH ×4 (06:06→23:20)
[2021-06-03] MEDS: cloNIDine 0.2 mg/24hr 7DAY PATCH TD SCH (08:39)
[2021-06-03 08:50] VITALS: BP 140/69
[2021-06-03 09:46] LABS: BUN/Creatinine Ratio 11.4; Calcium 8.5 mg/dL (8.5-10.1); Potassium 3.3 mmol/L (3.5-5.1)
[2021-06-03] MEDS: HYDROCORTISONE SOD SUCC 100 MG/2ML INJ VIAL IV SCH ×2 (10:10→23:20)
[2021-06-03] MEDS: POTASSIUM CHL 20 Meq TABLET PO SCH ×2 (10:11→23:21)
[2021-06-03] MEDS: ZINC SULFATE 220mg CAP or TAB PO SCH (10:11)
[2021-06-03] MEDS: MULTIPLE VITAMIN TAB PO SCH (10:11)
[2021-06-03] MEDS: PANTOPRAZOLE 40 MG/10 ML VIAL INJ IV SCH ×2 (10:11→23:20)
[2021-06-03] MEDS: ASCORBIC ACID 500 MG TAB PO SCH ×2 (10:11→23:21)
[2021-06-03] MEDS: CARVEDILOL 12.5 MG TAB PO SCH ×2 (10:13→23:22)
[2021-06-03] MEDS: NIFEdipine ER 30 MG TAB PO SCH (10:13)
[2021-06-03] MEDS: HEPARIN SODIUM (PORCINE) 5000 UNITS/ML 1ML VIAL SC SCH ×2 (10:15→23:23)
[2021-06-03] MEDS: HYDROmorphone HCL 2 MG/ML VL IV PRN (10:59)
[2021-06-03] MEDS: ONDANSETRON HCL 4 MG/2 ML VIAL IV PRN ×2 (10:59→22:20)
[2021-06-03 13:00] VITALS: BP 134/76
[2021-06-03 17:00] VITALS: BP 141/69
[2021-06-03 22:00] VITALS: BP 130/68
[2021-06-03] MEDS: LORazepam 2MG/ML-1ML VIAL IV PRN (22:18)
[2021-06-04 05:00] VITALS: BP 140/79
[2021-06-04] MEDS: VANCOMYCIN HCL 125MG/5ML ORAL SOL PO SCH ×2 (06:53→11:44)
[2021-06-04] MEDS: ACCU-CHEK COMFORT CURVE STRIP VI SCH ×2 (06:54→11:29)
[2021-06-04] MEDS: InsuLIN REG 1unit/0.01ml Soln (100units/ml) SC SCH ×2 (06:54→11:30)
[2021-06-04] MEDS: hydrALAZINE HCL 25 MG TAB PO SCH (06:54)
[2021-06-04 09:00] VITALS: BP 125/85
[2021-06-04] MEDS: PANTOPRAZOLE 40 MG/10 ML VIAL INJ IV SCH (09:51)
[2021-06-04] MEDS: HYDROCORTISONE SOD SUCC 100 MG/2ML INJ VIAL IV SCH (09:52)
[2021-06-04] MEDS: ZINC SULFATE 220mg CAP or TAB PO SCH (09:52)
[2021-06-04] MEDS: POTASSIUM CHL 20 Meq TABLET PO SCH (09:52)
[2021-06-04] MEDS: MULTIPLE VITAMIN TAB PO SCH (09:53)
[2021-06-04] MEDS: CARVEDILOL 12.5 MG TAB PO SCH (09:54)
[2021-06-04] MEDS: ASCORBIC ACID 500 MG TAB PO SCH (09:55)
[2021-06-04] MEDS: NIFEdipine ER 30 MG TAB PO SCH (09:55)
[2021-06-04 09:57] LABS: Basophils # (auto) 0.1 10 ^3/uL (0-0.2); Eosinophils # (auto) 0.1 10 ^3/uL (0-0.8); Hemoglobin 9.8 g/dL (12.2-16.2); Neutrophils # (auto) 5.9 10 ^3/uL (1.6-8.6)
[2021-06-04] MEDS: HEPARIN SODIUM (PORCINE) 5000 UNITS/ML 1ML VIAL SC SCH (09:57)
[2021-06-04 09:58] LABS: Basophils % (auto) 1.1 % (0.0-2.0); Eosinophils % (auto) 1.1 % (0.0-7.0); Hematocrit 28.2 % (36.0-46.0); Lymphocytes # (auto) 3.2 10 ^3/uL (0.4-5.4); Lymphocytes % (auto) 30.6 % (10.0-50.0); Mean Corpuscular Hemoglobin 34.9 pg (28.0-32.0); Mean Corpuscular Hgb Conc. 34.6 g/dL (32.0-36.0); Mean Corpuscular Volume 100.8 fL (80.0-100.0); Monocytes # (auto) 1.1 10 ^3/uL (0-1.3); Monocytes % (auto) 10.5 % (0.0-12.0); Neutrophils % (auto) 56.7 % (37.0-80.0); Nucleated Red Blood Cells % 0.1 %; Platelet Count (auto) 454 10^3/uL (140-450); Red Cell Distribution Width 17.3 % (11.8-14.3); White Blood Cell 10.4 10^3/uL (4.4-10.8)
[2021-06-04] MEDS: ONDANSETRON HCL 4 MG/2 ML VIAL IV PRN (10:26)
[2021-06-04] MEDS: HYDROmorphone HCL 2 MG/ML VL IV PRN (10:40)
[2021-06-04 10:47] LABS: BUN/Creatinine Ratio 11.6; Calcium 9.1 mg/dL (8.5-10.1); Magnesium 1.5 mg/dL (1.6-2.6); Phosphorus 2.7 mg/dL (2.5-4.90); Potassium 3.8 mmol/L (3.5-5.1)
[2021-06-04 13:00] VITALS: BP 137/76
[2021-06-04 15:23] VITALS: BP 137/76
[2021-06-04 17:00] VITALS: BP 128/70
== END 2021-06-04 17:20 | disposition home health service (06) | DRG 720 ==
LOC: ER 22:45 → TELE 05-18 06:03 → ICU WEST 05-18 18:18 → TELE-CENTR 05-29 16:55
PROVIDERS: ADMIT Nurse Practitioner Family; ATTEND Internal Medicine
PROC: 0BH17EZ Insertion of Endotracheal Airway into Trachea, Via Natural or Artificial Opening (ICD-10-PCS; principal; 2021-05-18)
PROC: 5A1955Z Respiratory Ventilation, Greater than 96 Consecutive Hours (ICD-10-PCS; 2021-05-18)
PROC: 04HY32Z Insertion of Monitoring Device into Lower Artery, Percutaneous Approach (ICD-10-PCS; 2021-05-18)
PROC: 05HF33Z Insertion of Infusion Device into Left Cephalic Vein, Percutaneous Approach (ICD-10-PCS; 2021-06-02)
PROC: B54NZZA Ultrasonography of Left Upper Extremity Veins, Guidance (ICD-10-PCS; 2021-06-02)
DX: A41.51 Sepsis due to Escherichia coli [E. coli] (principal); J96.01 Acute respiratory failure with hypoxia; N17.0 Acute kidney failure with tubular necrosis; R65.21 Severe sepsis with septic shock; J69.0 Pneumonitis due to inhalation of food and vomit; K83.09 Other cholangitis; A04.72 Enterocolitis due to Clostridium difficile, not specified as recurrent; I47.2 Ventricular tachycardia; K85.90 Acute pancreatitis without necrosis or infection, unspecified; N28.0 Ischemia and infarction of kidney; E66.01 Morbid (severe) obesity due to excess calories; E83.42 Hypomagnesemia; E86.1 Hypovolemia; I16.0 Hypertensive urgency; I49.3 Ventricular premature depolarization; J98.11 Atelectasis; K57.30 Diverticulosis of large intestine without perforation or abscess without bleeding; K76.0 Fatty (change of) liver, not elsewhere classified; N39.0 Urinary tract infection, site not specified; M19.90 Unspecified osteoarthritis, unspecified site; Z20.822 Contact with and (suspected) exposure to COVID-19; R74.01 Elevation of levels of liver transaminase levels; B96.89 Other specified bacterial agents as the cause of diseases classified elsewhere; I10 Essential (primary) hypertension; E11.65 Type 2 diabetes mellitus with hyperglycemia; N20.0 Calculus of kidney; E87.2 Acidosis; E88.09 Other disorders of plasma-protein metabolism, not elsewhere classified; E87.6 Hypokalemia; Z88.1 Allergy status to other antibiotic agents; Z88.0 Allergy status to penicillin; Z88.8 Allergy status to other drugs, medicaments and biological substances; Z78.9 Other specified health status; Z79.4 Long term (current) use of insulin; Z87.442 Personal history of urinary calculi; Z90.49 Acquired absence of other specified parts of digestive tract; Z99.11 Dependence on respirator [ventilator] status; Z79.899 Other long term (current) drug therapy; Z68.37 Body mass index [BMI] 37.0-37.9, adult
CPT/HCPCS: 36415; 36600; 71045; 74176; 74181; 76775; 80048; 80053; 80307; 81001; 82010; 82140; 82150; 82805; 82962; 83036; 83605; 83690; 83735; 83930; 84100; 84132; 84478; 84484; 85007; 85025; 85027; 85049; 85610; 85730; 86141; 87040; 87070; 87077; 87081; 87086; 87186; 87205; 87426; 87493; 93005; 93306; 94002; 94003; 94640; 96365; 96366; 96367; 96375; 96376; 97110; 97116; 97530; C9113; G0378; J0171; J0330; J0696; J1815; J2001; J2250; J2405; J3480; J3490; J7060; Q9956

== ENCOUNTER 2021-06-19 13:41 | Inpatient (IN) | payer MEDICAID ==
[~2021-06-19] VITALS: Ht 154.9 cm; Wt 88.5 kg
[2021-06-19] MEDS ORDERED: PROMETHAZINE HCL 25 MG/ML 1ML IV ONE (14:45)
[2021-06-19 15:03] LABS: Basophils # (auto) 0.1 10 ^3/uL (0-0.2); Basophils % (auto) 1.2 % (0.0-2.0); Eosinophils # (auto) 0.2 10 ^3/uL (0-0.8); Eosinophils % (auto) 1.8 % (0.0-7.0); Hematocrit 37.3 % (36.0-46.0); Hemoglobin 12.6 g/dL (12.2-16.2); Lymphocytes # (auto) 4.5 10 ^3/uL (0.4-5.4); Lymphocytes % (auto) 40.6 % (10.0-50.0); Mean Corpuscular Hemoglobin 33.1 pg (28.0-32.0); Mean Corpuscular Hgb Conc. 33.8 g/dL (32.0-36.0); Mean Corpuscular Volume 98.2 fL (80.0-100.0); Monocytes # (auto) 0.8 10 ^3/uL (0-1.3); Monocytes % (auto) 7.1 % (0.0-12.0); Neutrophils # (auto) 5.5 10 ^3/uL (1.6-8.6); Neutrophils % (auto) 49.3 % (37.0-80.0); Nucleated Red Blood Cells % 0.1 %; Red Cell Distribution Width 14.6 % (11.8-14.3); White Blood Cell 11.1 10^3/uL (4.4-10.8)
[2021-06-19 15:20] LABS: Anion Gap 12 (5-15); Blood Urea Nitrogen 12 mg/dL (7-18); Calcium 10.1 mg/dL (8.5-10.1); Carbon Dioxide 18 mmol/L (21-32); Chloride 108 mmol/L (98-107); Potassium 4.3 mmol/L (3.5-5.1); Sodium 138 mmol/L (136-145)
[2021-06-19 15:22] LABS: Lactic Acid w/Reflex 2.5 mmol/L (0.4-2.0)
[2021-06-19 15:28] LABS: Alanine Aminotransferase 41 U/L (13-56); Alkaline Phosphatase 93 U/L (45-117); Aspartate Aminotransferase 28 U/L (15-37); BUN/Creatinine Ratio 9.6; Bilirubin, Total 0.5 mg/dL (0.2-1.0); GFR African American 56 mL/min; GFR Non-African American 46 mL/min; Glucose 116 mg/dL (74-106); Total Protein 8.1 g/dL (6.4-8.2)
[2021-06-19 15:39] LABS: Amylase 72 U/L (25-115); Lipase 558 U/L (73-393)
[2021-06-19] MEDS ORDERED: SODIUM CHLORIDE 0.9% 1,000 ML IV ONE (15:45)
[2021-06-19] MEDS ORDERED: ACETAMINOPHEN 325 MG TAB PO ONE ×2 (16:15→16:30)
[2021-06-19 18:13] LABS: Urine Bacteria NONE SEEN /hpf (None Seen); Urine Blood Negative /uL (Negative); Urine WBC 49 /hpf (0 - 5)
[2021-06-19] MEDS ORDERED: NITROGLYCERIN 0.4 MG SL TAB SL PRN (18:30)
[2021-06-19] MEDS ORDERED: MORPHINE SULF INJ 2 MG/ML SYRINGE 1ML IV PRN (18:30)
[2021-06-19] MEDS: SODIUM CHLORIDE 0.9% 1,000 ML IV SCH (19:36)
[2021-06-19 22:00] VITALS: BP 140/72
[2021-06-19 22:30] VITALS: BP 140/72
[2021-06-19 22:39] LABS: Basophils # (auto) 0.1 10 ^3/uL (0-0.2); Eosinophils # (auto) 0.2 10 ^3/uL (0-0.8); Eosinophils % (auto) 2.7 % (0.0-7.0); Hematocrit 32.1 % (36.0-46.0); Lymphocytes # (auto) 2.9 10 ^3/uL (0.4-5.4); Lymphocytes % (auto) 33.5 % (10.0-50.0); Mean Corpuscular Hemoglobin 33.9 pg (28.0-32.0); Mean Corpuscular Hgb Conc. 34.3 g/dL (32.0-36.0); Mean Corpuscular Volume 98.9 fL (80.0-100.0); Monocytes # (auto) 0.7 10 ^3/uL (0-1.3); Monocytes % (auto) 7.8 % (0.0-12.0); Neutrophils # (auto) 4.8 10 ^3/uL (1.6-8.6); Red Blood Cells 3.25 10^6/uL (4.0-5.20); White Blood Cell 8.8 10^3/uL (4.4-10.8)
[2021-06-19 22:58] LABS: Albumin 3.8 g/dL (3.4-5.0); Calcium 9.1 mg/dL (8.5-10.1); Potassium 3.8 mmol/L (3.5-5.1)
[2021-06-19 23:00] LABS: BUN/Creatinine Ratio 10.7
[2021-06-19 23:02] LABS: Bilirubin, Total 0.4 mg/dL (0.2-1.0); Total Protein 6.9 g/dL (6.4-8.2)
[2021-06-20 05:00] VITALS: BP 134/67
[2021-06-20] MEDS: SODIUM CHLORIDE 0.9% 1,000 ML IV SCH ×3 (07:02→18:30)
[2021-06-20 07:22] LABS: Basophils # (auto) 0.1 10 ^3/uL (0-0.2); Eosinophils # (auto) 0.2 10 ^3/uL (0-0.8); Eosinophils % (auto) 3.6 % (0.0-7.0); Hematocrit 29.9 % (36.0-46.0); Hemoglobin 10.1 g/dL (12.2-16.2); Lymphocytes # (auto) 2.7 10 ^3/uL (0.4-5.4); Mean Corpuscular Hemoglobin 33.7 pg (28.0-32.0); Monocytes # (auto) 0.6 10 ^3/uL (0-1.3); Monocytes % (auto) 9.1 % (0.0-12.0); Neutrophils % (auto) 45.3 % (37.0-80.0); Nucleated Red Blood Cells % 0.1 %; Red Blood Cells 3.02 10^6/uL (4.0-5.20); Red Cell Distribution Width 14.7 % (11.8-14.3); White Blood Cell 6.6 10^3/uL (4.4-10.8)
[2021-06-20 07:40] LABS: Albumin 3.2 g/dL (3.4-5.0); Calcium 8.7 mg/dL (8.5-10.1); Potassium 3.5 mmol/L (3.5-5.1)
[2021-06-20 07:43] LABS: BUN/Creatinine Ratio 12.1; Bilirubin, Total 0.4 mg/dL (0.2-1.0); Total Protein 6.3 g/dL (6.4-8.2)
[2021-06-20] MEDS: MEPERIDINE HCL (25 MG/ML) 1ML VIAL IV PRN ×2 (09:38→20:52)
[2021-06-20] MEDS ORDERED: PANTOPRAZOLE 40 MG/10 ML VIAL INJ IV SCH (10:00)
[2021-06-20 10:06] VITALS: BP 146/88
[2021-06-20 13:00] VITALS: BP 151/89
[2021-06-20 16:51] VITALS: BP 157/98
[2021-06-20] MEDS: SUCRALFATE 1 GM/10 ML ORAL SUSP PO SCH ×2 (17:00→21:00)
[2021-06-20] MEDS: ONDANSETRON HCL 4 MG/2 ML VIAL IV PRN (17:10)
[2021-06-20] MEDS ORDERED: CARV12.544 PO (17:30)
[2021-06-20] MEDS ORDERED: POTA-220 PO (17:30)
[2021-06-20] MEDS ORDERED: NIFE1TAB30 PO (17:30)
[2021-06-20] MEDS ORDERED: TRAM50TA2 PO (17:30)
[2021-06-20] MEDS ORDERED: MECL25TA18 PO (17:30)
[2021-06-20] MEDS ORDERED: HYDR50TA15 PO (17:30)
[2021-06-20] MEDS: PANTOPRAZOLE 40 MG/10 ML VIAL INJ IV SCH (21:00)
[2021-06-20 22:00] VITALS: BP 143/89
[2021-06-21] MEDS: SODIUM CHLORIDE 0.9% 1,000 ML IV SCH ×3 (04:12→16:44)
[2021-06-21 05:22] LABS: Basophils # (auto) 0.1 10 ^3/uL (0-0.2); Basophils % (auto) 1.8 % (0.0-2.0); Eosinophils # (auto) 0.2 10 ^3/uL (0-0.8); Eosinophils % (auto) 3.3 % (0.0-7.0); Hematocrit 27.9 % (36.0-46.0); Hemoglobin 9.8 g/dL (12.2-16.2); Lymphocytes # (auto) 2.4 10 ^3/uL (0.4-5.4); Lymphocytes % (auto) 40.4 % (10.0-50.0); Mean Corpuscular Hemoglobin 34.5 pg (28.0-32.0); Mean Corpuscular Volume 98.4 fL (80.0-100.0); Monocytes # (auto) 0.6 10 ^3/uL (0-1.3); Monocytes % (auto) 9.4 % (0.0-12.0); Neutrophils # (auto) 2.6 10 ^3/uL (1.6-8.6); Neutrophils % (auto) 45.1 % (37.0-80.0); Nucleated Red Blood Cells % 0.1 %; Red Blood Cells 2.84 10^6/uL (4.0-5.20); White Blood Cell 5.9 10^3/uL (4.4-10.8)
[2021-06-21 05:40] LABS: Albumin 3.1 g/dL (3.4-5.0); Calcium 8.4 mg/dL (8.5-10.1); Potassium 3.2 mmol/L (3.5-5.1)
[2021-06-21 05:44] LABS: BUN/Creatinine Ratio 8.9; Bilirubin, Total 0.3 mg/dL (0.2-1.0); Total Protein 6.2 g/dL (6.4-8.2)
[2021-06-21] MEDS: SUCRALFATE 1 GM/10 ML ORAL SUSP PO SCH ×4 (06:00→21:01)
[2021-06-21 09:00] VITALS: BP 139/79
[2021-06-21] MEDS: PANTOPRAZOLE 40 MG/10 ML VIAL INJ IV SCH ×2 (09:36→21:00)
[2021-06-21 11:44] LABS: INR 1.04 (0.9-1.15)
[2021-06-21 13:00] VITALS: BP 161/95
[2021-06-21] MEDS: MEPERIDINE HCL (25 MG/ML) 1ML VIAL IV PRN ×2 (15:02→21:00)
[2021-06-21 17:00] VITALS: BP 163/94
[2021-06-21] MEDS: traMADol HCL 50 MG TAB PO PRN (19:38)
[2021-06-21 22:00] VITALS: BP 142/89
[2021-06-21] MEDS: ONDANSETRON HCL 4 MG/2 ML VIAL IV PRN (23:12)
[2021-06-22] MEDS: SODIUM CHLORIDE 0.9% 1,000 ML IV SCH ×4 (02:28→21:22)
[2021-06-22 05:00] VITALS: BP 126/56
[2021-06-22] MEDS: SUCRALFATE 1 GM/10 ML ORAL SUSP PO SCH ×4 (06:05→21:22)
[2021-06-22 06:52] LABS: Basophils # (auto) 0.1 10 ^3/uL (0-0.2); Eosinophils # (auto) 0.3 10 ^3/uL (0-0.8); Lymphocytes # (auto) 2.3 10 ^3/uL (0.4-5.4); Nucleated Red Blood Cells % 0.1 %; Red Cell Distribution Width 13.9 % (11.8-14.3); White Blood Cell 5.8 10^3/uL (4.4-10.8)
[2021-06-22 06:56] LABS: Eosinophils % (auto) 5.8 % (0.0-7.0); Hematocrit 28.8 % (36.0-46.0); Hemoglobin 10.2 g/dL (12.2-16.2); Mean Corpuscular Hemoglobin 34.4 pg (28.0-32.0); Mean Corpuscular Hgb Conc. 35.3 g/dL (32.0-36.0); Mean Corpuscular Volume 97.4 fL (80.0-100.0); Monocytes # (auto) 0.6 10 ^3/uL (0-1.3); Monocytes % (auto) 10.1 % (0.0-12.0); Neutrophils # (auto) 2.6 10 ^3/uL (1.6-8.6); Neutrophils % (auto) 44.1 % (37.0-80.0); Red Blood Cells 2.95 10^6/uL (4.0-5.20)
[2021-06-22 06:57] LABS: Potassium 3.1 mmol/L (3.5-5.1)
[2021-06-22 07:15] LABS: Albumin 3.2 g/dL (3.4-5.0); BUN/Creatinine Ratio 5.1; Bilirubin, Total 0.3 mg/dL (0.2-1.0); Calcium 8.5 mg/dL (8.5-10.1); Total Protein 6.5 g/dL (6.4-8.2)
[2021-06-22 08:57] VITALS: BP 155/82
[2021-06-22 09:19] LABS: Lipase 318 U/L (73-393); Triglycerides 179 mg/dL (< 150)
[2021-06-22] MEDS: PANTOPRAZOLE 40 MG/10 ML VIAL INJ IV SCH ×2 (09:41→21:22)
[2021-06-22] MEDS: POTASSIUM CHL 20MEQ/100ML 100 ML IV SCH ×2 (11:38→14:37)
[2021-06-22] MEDS ORDERED: LIDOCAINE VISCOUS 2% 15ML UD ONE (11:52)
[2021-06-22] MEDS ORDERED: SODIUM CHLORIDE LOCK 10 ML ONE (11:52)
[2021-06-22] MEDS ORDERED: diphenhdrAMINE HCL 50 MG/1 ML VL ONE (11:53)
[2021-06-22] MEDS ORDERED: fentaNYL CITRATE 100 MCG/2 ML VL ONE (11:53)
[2021-06-22] MEDS ORDERED: MIDAZOLAM HCL 5 MG/ML-1ML VIAL ONE (11:53)
[2021-06-22 13:00] VITALS: BP 137/84
[2021-06-22] MEDS ORDERED: hydrALAZINE HCL 20 MG/ML VL IV PRN (15:00)
[2021-06-22 16:30] VITALS: BP 107/55
[2021-06-22] MEDS: ONDANSETRON HCL 4 MG/2 ML VIAL IV PRN (20:59)
[2021-06-22] MEDS: MEPERIDINE HCL (25 MG/ML) 1ML VIAL IV PRN (20:59)
[2021-06-22 22:00] VITALS: BP 124/71
[2021-06-23 05:00] VITALS: BP 130/84
[2021-06-23] MEDS: SODIUM CHLORIDE 0.9% 1,000 ML IV SCH (05:05)
[2021-06-23 05:37] LABS: Basophils # (auto) 0 10 ^3/uL (0-0.2); Basophils % (auto) 0.8 % (0.0-2.0); Eosinophils # (auto) 0.3 10 ^3/uL (0-0.8); Hemoglobin 9.8 g/dL (12.2-16.2); Lymphocytes # (auto) 2.5 10 ^3/uL (0.4-5.4); Neutrophils # (auto) 2.8 10 ^3/uL (1.6-8.6); White Blood Cell 6.2 10^3/uL (4.4-10.8)
[2021-06-23 05:39] LABS: Eosinophils % (auto) 5.2 % (0.0-7.0); Hematocrit 27.8 % (36.0-46.0); Lymphocytes % (auto) 39.7 % (10.0-50.0); Mean Corpuscular Hemoglobin 34.1 pg (28.0-32.0); Mean Corpuscular Hgb Conc. 35.4 g/dL (32.0-36.0); Mean Corpuscular Volume 96.3 fL (80.0-100.0); Monocytes # (auto) 0.6 10 ^3/uL (0-1.3); Neutrophils % (auto) 45.3 % (37.0-80.0); Red Blood Cells 2.88 10^6/uL (4.0-5.20); Red Cell Distribution Width 13.7 % (11.8-14.3)
[2021-06-23] MEDS: SUCRALFATE 1 GM/10 ML ORAL SUSP PO SCH ×2 (05:48→11:30)
[2021-06-23 06:02] LABS: Albumin 3.1 g/dL (3.4-5.0); Calcium 8.2 mg/dL (8.5-10.1); Potassium 3.2 mmol/L (3.5-5.1)
[2021-06-23 06:05] LABS: BUN/Creatinine Ratio 5.3; Bilirubin, Total 0.4 mg/dL (0.2-1.0); Total Protein 6.3 g/dL (6.4-8.2)
[2021-06-23] MEDS ORDERED: POTASSIUM CHL 20 Meq TABLET PO ONE ×2 (06:45→11:00)
[2021-06-23 09:00] VITALS: BP 132/93
[2021-06-23] MEDS: PANTOPRAZOLE 40 MG/10 ML VIAL INJ IV SCH (10:04)
[2021-06-23] MEDS: traMADol HCL 50 MG TAB PO PRN (11:35)
[2021-06-23] MEDS: ONDANSETRON HCL 4 MG/2 ML VIAL IV PRN (11:35)
[2021-06-23 13:00] VITALS: BP 132/85
== END 2021-06-23 15:45 | disposition home or self-care (01) | DRG 241 ==
LOC: ER 13:41 → TELE 18:29 → TELE-WESTW 21:37
PROVIDERS: ADMIT Internal Medicine; ATTEND Internal Medicine
PROC: 0DB68ZX Excision of Stomach, Via Natural or Artificial Opening Endoscopic, Diagnostic (ICD-10-PCS; principal; 2021-06-22 13:25)
DX: K29.70 Gastritis, unspecified, without bleeding (principal); K85.90 Acute pancreatitis without necrosis or infection, unspecified; E78.5 Hyperlipidemia, unspecified; Z20.822 Contact with and (suspected) exposure to COVID-19; I10 Essential (primary) hypertension; N20.0 Calculus of kidney; M19.90 Unspecified osteoarthritis, unspecified site; R74.8 Abnormal levels of other serum enzymes; Z87.442 Personal history of urinary calculi; Z90.710 Acquired absence of both cervix and uterus; Z90.49 Acquired absence of other specified parts of digestive tract; Z88.1 Allergy status to other antibiotic agents; Z88.6 Allergy status to analgesic agent; Z88.8 Allergy status to other drugs, medicaments and biological substances; Z79.899 Other long term (current) drug therapy
CPT/HCPCS: 36415; 43239; 70450; 74176; 80053; 81001; 82150; 83605; 83690; 84478; 84484; 85025; 85610; 87040; 87081; 87426; 93005; 96361; 96374; C9113; G0378; J2250; J2405; J3480

== ENCOUNTER 2022-07-15 08:36 | Emergency (ER) | payer MEDICAID ==
[~2022-07-15] VITALS: Ht 154.9 cm; Wt 83.1 kg
[~2022-07-15 08:36] MED LIST: CARV12.544 PO; HYDR50TA15 PO; MECL25TA18 PO; NIFE1TAB30 PO; POTA-220 PO; TRAM50TA2 PO
[2022-07-15] MEDS ORDERED: cloNIDine HCL 0.1 MG TAB PO ONE (09:15)
[2022-07-15 09:50] LABS: Basophils # (auto) 0.1 10 ^3/uL (0-0.2); Eosinophils # (auto) 0.1 10 ^3/uL (0-0.8); Eosinophils % (auto) 1.7 % (0.0-7.0); Hematocrit 41.8 % (36.0-46.0); Hemoglobin 13.7 g/dL (12.2-16.2); Lymphocytes # (auto) 3.4 10 ^3/uL (0.4-5.4); Lymphocytes % (auto) 49.4 % (10.0-50.0); Mean Corpuscular Hemoglobin 31.2 pg (28.0-32.0); Mean Corpuscular Hgb Conc. 32.8 g/dL (32.0-36.0); Mean Corpuscular Volume 95.2 fL (80.0-100.0); Monocytes # (auto) 0.5 10 ^3/uL (0-1.3); Monocytes % (auto) 7.1 % (0.0-12.0); Neutrophils # (auto) 2.8 10 ^3/uL (1.6-8.6); Neutrophils % (auto) 40.8 % (37.0-80.0); Nucleated Red Blood Cells % 0.1 %; Red Blood Cells 4.39 10^6/uL (4.0-5.20); Red Cell Distribution Width 13.7 % (11.8-14.3)
[2022-07-15 10:02] LABS: Urine Bacteria FEW /hpf (None Seen); Urine Blood Negative /uL (Negative); Urine Mucus FEW (None Seen); Urine Specific Gravity 1.026 (1.001-1.035); Urine WBC 8 /hpf (0 - 5)
[2022-07-15 10:12] LABS: Albumin 4.1 g/dL (3.4-5.0); Calcium 9.4 mg/dL (8.5-10.1); Magnesium 2.2 mg/dL (1.6-2.6); Potassium 3.6 mmol/L (3.5-5.1)
[2022-07-15 10:17] LABS: BUN/Creatinine Ratio 24.8; Bilirubin, Total 0.5 mg/dL (0.2-1.0); Total Protein 7.6 g/dL (6.4-8.2)
[2022-07-15 16:39] VITALS: BP 120/84
[2022-07-15] MEDS ORDERED: NITR-87 PO (16:39)
[2022-07-15] MEDS ORDERED: MECL25CH38 PO (16:39)
== END 2022-07-15 16:56 | disposition home or self-care (01) ==
LOC: ER 08:36
DX: I10 Essential (primary) hypertension (principal); R42 Dizziness and giddiness; N39.0 Urinary tract infection, site not specified; E78.5 Hyperlipidemia, unspecified; Z90.49 Acquired absence of other specified parts of digestive tract; Z90.710 Acquired absence of both cervix and uterus; Z79.899 Other long term (current) drug therapy; Z88.1 Allergy status to other antibiotic agents; Z88.8 Allergy status to other drugs, medicaments and biological substances
CPT/HCPCS: 36415; 70450; 80053; 81001; 83735; 84443; 84484; 85025; 93005

== ENCOUNTER 2023-02-16 10:58 | Inpatient (IN) | payer MEDICAID ==
[~2023-02-16] VITALS: Ht 154.9 cm; Wt 87.2 kg
[~2023-02-16 10:58] MED LIST changes: +MECL25CH38 PO; +NITR-87 PO
[2023-02-16 11:26] LABS: Basophils # (auto) 0.1 10 ^3/uL (0-0.2); Basophils % (auto) 0.6 % (0.0-2.0); Eosinophils # (auto) 0.1 10 ^3/uL (0-0.8); Eosinophils % (auto) 1.3 % (0.0-7.0); Hemoglobin 14.1 g/dL (12.2-16.2); Lymphocytes # (auto) 3.4 10 ^3/uL (0.4-5.4); Lymphocytes % (auto) 40.2 % (10.0-50.0); Mean Corpuscular Hemoglobin 32.5 pg (28.0-32.0); Mean Corpuscular Hgb Conc. 35.2 g/dL (32.0-36.0); Mean Corpuscular Volume 92.5 fL (80.0-100.0); Monocytes # (auto) 0.5 10 ^3/uL (0-1.3); Monocytes % (auto) 6.2 % (0.0-12.0); Neutrophils # (auto) 4.4 10 ^3/uL (1.6-8.6); Neutrophils % (auto) 51.7 % (37.0-80.0); Red Blood Cells 4.32 10^6/uL (4.0-5.20); Red Cell Distribution Width 13.4 % (11.8-14.3); White Blood Cell 8.5 10^3/uL (4.4-10.8)
[2023-02-16 12:00] LABS: BUN/Creatinine Ratio 24.1 (10.0-20.0); Bilirubin, Total 0.2 mg/dL (0.2-1.0); Calcium 9.4 mg/dL (8.5-10.1); Potassium 3.7 mmol/L (3.5-5.1)
[2023-02-16 12:55] LABS: Urine Bacteria MOD /hpf (None Seen); Urine Blood Negative /uL (Negative); Urine Specific Gravity 1.021 (1.001-1.035); Urine WBC 5 /hpf (0 - 5)
[2023-02-16] MEDS ORDERED: NITROGLYCERIN 0.4 MG SL TAB SL ONE (13:00)
[2023-02-16] MEDS ORDERED: ASPirin 325 MG TAB PO ONE (13:00)
[2023-02-16] MEDS ORDERED: NITROGLYCERIN 0.4 MG SL TAB SL PRN (15:15)
[2023-02-16] MEDS ORDERED: hydrALAZINE HCL 20 MG/ML VL IV PRN (15:15)
[2023-02-16] MEDS ORDERED: HYDROcodone-ACET 5/325MG TAB PO PRN (15:15)
[2023-02-16] MEDS ORDERED: ACETAMINOPHEN 325 MG TAB PO PRN (15:15)
[2023-02-16] MEDS ORDERED: TEMAZEPAM 15 MG CAP PO PRN (15:15)
[2023-02-16] MEDS ORDERED: MORPHINE SULFATE INJ 2 MG/ml SYRG IV PRN ×2 (15:15)
[2023-02-16] MEDS: cefTRIAXone 1GM/50ML D5W 50 ML IV SCH (16:18)
[2023-02-16] MEDS ORDERED: SODIUM CHLORIDE 0.9% 250 ML IV ONE (18:30)
[2023-02-17] MEDS: ONDANSETRON HCL 4 MG/2 ML VIAL IV PRN ×2 (00:01→11:59)
[2023-02-17] MEDS: CARVEDILOL 12.5 MG TAB PO SCH ×3 (00:04→21:24)
[2023-02-17 06:06] LABS: Basophils # (auto) 0.1 10 ^3/uL (0-0.2); Basophils % (auto) 0.6 % (0.0-2.0); Eosinophils # (auto) 0.1 10 ^3/uL (0-0.8); Eosinophils % (auto) 1.1 % (0.0-7.0); Hematocrit 37.7 % (36.0-46.0); Hemoglobin 13.2 g/dL (12.2-16.2); Lymphocytes # (auto) 2.9 10 ^3/uL (0.4-5.4); Lymphocytes % (auto) 32.4 % (10.0-50.0); Mean Corpuscular Volume 91.2 fL (80.0-100.0); Monocytes # (auto) 0.6 10 ^3/uL (0-1.3); Monocytes % (auto) 7.1 % (0.0-12.0); Neutrophils # (auto) 5.2 10 ^3/uL (1.6-8.6); Neutrophils % (auto) 58.8 % (37.0-80.0); Nucleated Red Blood Cells % 0.1 %; Red Blood Cells 4.13 10^6/uL (4.0-5.20); Red Cell Distribution Width 13.5 % (11.8-14.3); White Blood Cell 8.9 10^3/uL (4.4-10.8)
[2023-02-17 06:34] LABS: Albumin 3.6 g/dL (3.4-5.0); BUN/Creatinine Ratio 24.5 (10.0-20.0); Bilirubin, Total 0.4 mg/dL (0.2-1.0); Calcium 9.1 mg/dL (8.5-10.1)
[2023-02-17 08:05] VITALS: BP 117/90
[2023-02-17 08:30] VITALS: BP 117/90
[2023-02-17] MEDS ORDERED: NITR1CAP36 PO (09:14)
[2023-02-17] MEDS ORDERED: SUL500T PO (09:14)
[2023-02-17] MEDS ORDERED: VENL37.588 PO (09:14)
[2023-02-17] MEDS ORDERED: LISI-716 PO (09:14)
[2023-02-17] MEDS ORDERED: ADAL40IN2 SC (09:14)
[2023-02-17] MEDS ORDERED: DICL1GEL50 TOP (09:14)
[2023-02-17] MEDS: NIFEdipine ER 30 MG TAB PO SCH (11:33)
[2023-02-17] MEDS: PANTOPRAZOLE 40 MG TAB PO SCH (11:33)
[2023-02-17] MEDS: ENOXAPARIN SOD 40 MG/0.4 ML SYRINGE SC SCH (11:34)
[2023-02-17] MEDS: cefTRIAXone 1GM/50ML D5W 50 ML IV SCH (12:33)
[2023-02-17 12:43] VITALS: BP 143/70
[2023-02-17 16:23] VITALS: BP 116/67
[2023-02-17] MEDS: traMADol HCL 50 MG TAB PO PRN (16:57)
[2023-02-17 20:00] VITALS: BP 108/59
[2023-02-17 22:00] VITALS: BP 108/59
[2023-02-18] MEDS: ONDANSETRON HCL 4 MG/2 ML VIAL IV PRN (03:44)
[2023-02-18] MEDS: traMADol HCL 50 MG TAB PO PRN (03:44)
[2023-02-18 05:00] VITALS: BP 123/66
[2023-02-18] MEDS: cefTRIAXone 1GM/50ML D5W 50 ML IV SCH (07:44)
[2023-02-18 08:00] VITALS: BP 99/65
[2023-02-18] MEDS ORDERED: NIFE1TAB31 PO (08:06)
[2023-02-18] MEDS ORDERED: CEPH500T PO (08:06)
[2023-02-18] MEDS ORDERED: CAR125T PO (08:06)
[2023-02-18 09:00] VITALS: BP 99/65
[2023-02-18] MEDS: CARVEDILOL 12.5 MG TAB PO SCH (09:23)
[2023-02-18] MEDS: PANTOPRAZOLE 40 MG TAB PO SCH (09:24)
[2023-02-18] MEDS: ENOXAPARIN SOD 40 MG/0.4 ML SYRINGE SC SCH (09:27)
[2023-02-18] MEDS: NIFEdipine ER 30 MG TAB PO SCH (10:00)
== END 2023-02-18 12:30 | disposition home or self-care (01) | DRG 199 ==
LOC: ER 10:58 → TELE 15:16 → TELE-EAST 02-17 08:02
PROVIDERS: ADMIT Nurse Practitioner; ATTEND Nurse Practitioner
DX: I16.1 Hypertensive emergency (principal); E66.01 Morbid (severe) obesity due to excess calories; N30.00 Acute cystitis without hematuria; E78.5 Hyperlipidemia, unspecified; I10 Essential (primary) hypertension; Z20.822 Contact with and (suspected) exposure to COVID-19; Z88.6 Allergy status to analgesic agent; Z88.8 Allergy status to other drugs, medicaments and biological substances; Z68.36 Body mass index [BMI] 36.0-36.9, adult; Z90.710 Acquired absence of both cervix and uterus; Z90.49 Acquired absence of other specified parts of digestive tract; Z88.0 Allergy status to penicillin; Z87.442 Personal history of urinary calculi; Z86.19 Personal history of other infectious and parasitic diseases
CPT/HCPCS: 36415; 71045; 80053; 81001; 84484; 85025; 85379; 87086; 87088; 87186; 87426; 93005; 93306; G0378; J0696; J2405

== ENCOUNTER 2023-04-26 07:57 | Emergency (ER) | payer MEDICAID ==
[~2023-04-26] VITALS: Ht 154.9 cm; Wt 79.5 kg
[~2023-04-26 07:57] MED LIST changes: +ADAL40IN2 SC; +CAR125T PO; -CARV12.544 PO; +CEPH500T PO; -HYDR50TA15 PO; +MECL1TAB32 PO; -MECL25CH38 PO; -MECL25TA18 PO; -NIFE1TAB30 PO; +NIFE1TAB31 PO; -NITR-87 PO; +SUL500T PO; +VENL37.588 PO
[2023-04-26] MEDS ORDERED: KETOROLAC TROMETH 60MG/2ML VIAL IM ONE (08:45)
[2023-04-26] MEDS ORDERED: HYDROcodone-ACET 10/325MG TAB PO ONE (08:45)
[2023-04-26] MEDS ORDERED: DexAMETHasone SOD PHOS 10MG/1ML VIAL INJ IM ONE (08:45)
[2023-04-26 08:55] VITALS: BP 138/86
[2023-04-26] MEDS ORDERED: VALA1TAB34 PO (08:56)
[2023-04-26] MEDS ORDERED: IBUP-1455 PO (08:56)
[2023-04-26] MEDS ORDERED: HYDR-4798 PO (08:56)
[2023-04-26] MEDS ORDERED: ACYCLOVIR 400 MG TAB PO ONE (09:00)
[2023-04-26] MEDS ORDERED: ONDA-144 PO (09:52)
[2023-04-26] MEDS: ONDANSETRON ODT 4 MG TAB PO ONE ×2 (09:57→10:02)
== END 2023-04-26 09:26 | disposition home or self-care (01) ==
LOC: ER 07:57
DX: K04.7 Periapical abscess without sinus (principal); B02.8 Zoster with other complications; M19.90 Unspecified osteoarthritis, unspecified site; E78.5 Hyperlipidemia, unspecified; I10 Essential (primary) hypertension; Z87.442 Personal history of urinary calculi; Z90.89 Acquired absence of other organs; Z90.49 Acquired absence of other specified parts of digestive tract; Z98.890 Other specified postprocedural states; Z90.710 Acquired absence of both cervix and uterus; Z88.1 Allergy status to other antibiotic agents; Z88.5 Allergy status to narcotic agent
CPT/HCPCS: 96372; 99284; J1100; J1885; Q0162

== ENCOUNTER 2023-05-18 14:14 | Emergency (ER) | payer MEDICAID ==
[~2023-05-18] VITALS: Ht 154.9 cm; Wt 77.1 kg
[~2023-05-18 14:14] MED LIST changes: +HYDR-4798 PO; +IBUP-1455 PO; +ONDA-144 PO; +VALA1TAB34 PO
[2023-05-18 14:40] VITALS: BP 142/95
[2023-05-18] MEDS ORDERED: HYDROcodone-ACET 10/325MG TAB PO ONE (15:15)
[2023-05-18] MEDS ORDERED: AUG875T PO (15:59)
[2023-05-18] MEDS ORDERED: IBUP-1454 PO (15:59)
[2023-05-18] MEDS ORDERED: HYDR-4902 PO (15:59)
[2023-05-18] MEDS ORDERED: VALA1TAB34 PO (15:59)
== END 2023-05-18 16:09 | disposition home or self-care (01) ==
LOC: ER 14:14
DX: B02.9 Zoster without complications (principal); K04.7 Periapical abscess without sinus; I10 Essential (primary) hypertension; E78.5 Hyperlipidemia, unspecified; Z90.49 Acquired absence of other specified parts of digestive tract; Z90.710 Acquired absence of both cervix and uterus; Z79.899 Other long term (current) drug therapy; Z88.1 Allergy status to other antibiotic agents; Z88.5 Allergy status to narcotic agent
CPT/HCPCS: 70486

== ENCOUNTER 2023-06-08 12:56 | Inpatient (IN) | payer MEDICAID ==
[~2023-06-08] VITALS: Ht 154.9 cm; Wt 88.4 kg
[2023-06-08 03:19] VITALS: BP 105/59; PULSE 64; RESP 14; TEMP 98.2; O2SAT 100
[~2023-06-08 12:56] MED LIST changes: +AUG875T PO; +HYDR-4902 PO; +IBUP-1454 PO
[2023-06-08 13:27] LABS: Basophils # (auto) 0.1 10 ^3/uL (0-0.2); Basophils % (auto) 0.9 % (0.0-2.0); Eosinophils # (auto) 0.1 10 ^3/uL (0-0.8); Hematocrit 41.3 % (36.0-46.0); Hemoglobin 13.9 g/dL (12.2-16.2); Lymphocytes # (auto) 4.2 10 ^3/uL (0.4-5.4); Lymphocytes % (auto) 51.3 % (10.0-50.0); Mean Corpuscular Hemoglobin 31.3 pg (28.0-32.0); Mean Corpuscular Hgb Conc. 33.6 g/dL (32.0-36.0); Mean Corpuscular Volume 93.1 fL (80.0-100.0); Monocytes # (auto) 0.6 10 ^3/uL (0-1.3); Monocytes % (auto) 7.9 % (0.0-12.0); Neutrophils # (auto) 3.2 10 ^3/uL (1.6-8.6); Neutrophils % (auto) 38.9 % (37.0-80.0); Nucleated Red Blood Cells % 0.1 %; Red Blood Cells 4.43 10^6/uL (4.0-5.20); Red Cell Distribution Width 14.7 % (11.8-14.3); White Blood Cell 8.2 10^3/uL (4.4-10.8)
[2023-06-08 13:47] LABS: Albumin 4.1 g/dL (3.4-5.0); Calcium 10.1 mg/dL (8.5-10.1); Potassium 3.8 mmol/L (3.5-5.1)
[2023-06-08 13:51] LABS: BUN/Creatinine Ratio 8.4 (10.0-20.0); Bilirubin, Total 0.4 mg/dL (0.2-1.0); Total Protein 7.2 g/dL (6.4-8.2)
[2023-06-08] MEDS ORDERED: SODIUM CHLORIDE 0.9% 1,000 ML IV ONE ×3 (14:30)
[2023-06-08] MEDS ORDERED: MORPHINE SULFATE INJ 2 MG/ml SYRG IV PRN (16:45)
[2023-06-08] MEDS ORDERED: NITROGLYCERIN 0.4 MG SL TAB SL PRN (16:45)
[2023-06-08] MEDS ORDERED: MECLIZINE HCL 25 MG TAB PO PRN (17:00)
[2023-06-08] MEDS: SODIUM CHLORIDE 0.9% 1,000 ML IV SCH ×2 (17:15→23:55)
[2023-06-08 17:29] LABS: Urine Bacteria FEW /hpf (None Seen); Urine Blood Negative /uL (Negative); Urine Budding Yeast OCCASIONAL /hpf (None Seen); Urine Hyaline Cast FEW /lpf (0 - 2); Urine Mucus FEW (None Seen); Urine Specific Gravity 1.021 (1.001-1.035); Urine WBC 34 /hpf (0 - 5)
[2023-06-08] MEDS: HYDROcodone-ACET 5/325MG TAB PO PRN ×2 (17:46→22:19)
[2023-06-08 19:01] LABS: Sodium Urine 54 mmol/L (40-220)
[2023-06-08 19:10] LABS: Creatinine, Urine 326 mg/dL (30.0-125.0)
[2023-06-08] MEDS: ATORVASTATIN 20 MG TAB PO SCH (22:19)
[2023-06-09] MEDS ORDERED: OMEP-445 (02:20)
[2023-06-09] MEDS ORDERED: LISI20TA56 PO (02:20)
[2023-06-09] MEDS ORDERED: FOLI-119 PO (02:22)
[2023-06-09] MEDS ORDERED: NITR1CAP36 PO (02:22)
[2023-06-09 03:19] VITALS: BP 105/59; PULSE 64; RESP 14; TEMP 98.2; O2SAT 100
[2023-06-09 05:00] VITALS: BP 157/64; PULSE 69; RESP 18; TEMP 98.3; O2SAT 98
[2023-06-09 06:20] LABS: Basophils # (auto) 0 10 ^3/uL (0-0.2); Basophils % (auto) 0.5 % (0.0-2.0); Eosinophils # (auto) 0.1 10 ^3/uL (0-0.8); Eosinophils % (auto) 1.4 % (0.0-7.0); Hematocrit 34.1 % (36.0-46.0); Hemoglobin 11.6 g/dL (12.2-16.2); Lymphocytes # (auto) 3.1 10 ^3/uL (0.4-5.4); Lymphocytes % (auto) 47.3 % (10.0-50.0); Mean Corpuscular Hemoglobin 31.5 pg (28.0-32.0); Mean Corpuscular Hgb Conc. 33.9 g/dL (32.0-36.0); Monocytes # (auto) 0.5 10 ^3/uL (0-1.3); Monocytes % (auto) 8.3 % (0.0-12.0); Neutrophils # (auto) 2.8 10 ^3/uL (1.6-8.6); Neutrophils % (auto) 42.5 % (37.0-80.0); Nucleated Red Blood Cells % 0.1 %; Red Blood Cells 3.67 10^6/uL (4.0-5.20); Red Cell Distribution Width 14.5 % (11.8-14.3); White Blood Cell 6.7 10^3/uL (4.4-10.8)
[2023-06-09 06:30] LABS: Potassium 3.8 mmol/L (3.5-5.1)
[2023-06-09] MEDS: SODIUM CHLORIDE 0.9% 1,000 ML IV SCH ×3 (06:31→19:43)
[2023-06-09 06:40] LABS: Albumin 3.2 g/dL (3.4-5.0); BUN/Creatinine Ratio 13.3 (10.0-20.0); Bilirubin, Total 0.5 mg/dL (0.2-1.0); Calcium 8.8 mg/dL (8.5-10.1); Total Protein 6.1 g/dL (6.4-8.2)
[2023-06-09 08:00] VITALS: BP 110/57; PULSE 61; PULSE 65; PULSE 99; RESP 17; TEMP 98.4; O2SAT 99
[2023-06-09 08:30] VITALS: BP 110/57; PULSE 65; RESP 17; TEMP 97.4; O2SAT 99
[2023-06-09] MEDS: sulfaSALAzine 500 MG TAB PO SCH (09:51)
[2023-06-09] MEDS: ASPirin-EC 81 mg tab PO SCH (09:51)
[2023-06-09] MEDS: POTASSIUM CHL 20 Meq TABLET PO SCH (09:51)
[2023-06-09] MEDS ORDERED: CIPROFLOXACIN 400MG/200ML 200 ML IV ONE (12:00)
[2023-06-09 20:00] VITALS: BP 110/57; PULSE 65; PULSE 79; RESP 17; TEMP 97.4; O2SAT 99
[2023-06-09] MEDS: CIPROFLOXACIN 400MG/200ML 200 ML IV SCH (21:01)
[2023-06-09] MEDS: ATORVASTATIN 20 MG TAB PO SCH (21:04)
[2023-06-09 22:00] VITALS: BP 111/45; PULSE 66; RESP 17; TEMP 98.4; O2SAT 95
[2023-06-09] MEDS ORDERED: LORazepam 2MG/ML-1ML VIAL IV PRN (22:15)
[2023-06-10] VITALS (7 sets, daily range): BP systolic 110–140; BP diastolic 53–76; PULSE 58–99; RESP 17–21; TEMP 97.4–98.4; O2SAT 97–98
[2023-06-10] MEDS: ACETAMINOPHEN 325 MG TAB PO PRN (00:41)
[2023-06-10] MEDS: SODIUM CHLORIDE 0.9% 1,000 ML IV SCH ×4 (02:35→21:01)
[2023-06-10 06:06] LABS: Basophils # (auto) 0 10 ^3/uL (0-0.2); Basophils % (auto) 0.5 % (0.0-2.0); Eosinophils # (auto) 0.1 10 ^3/uL (0-0.8); Eosinophils % (auto) 2.3 % (0.0-7.0); Hematocrit 34.9 % (36.0-46.0); Hemoglobin 11.9 g/dL (12.2-16.2); Lymphocytes % (auto) 52.9 % (10.0-50.0); Mean Corpuscular Hemoglobin 31.9 pg (28.0-32.0); Mean Corpuscular Volume 93.6 fL (80.0-100.0); Monocytes # (auto) 0.5 10 ^3/uL (0-1.3); Neutrophils # (auto) 2.1 10 ^3/uL (1.6-8.6); Neutrophils % (auto) 36.3 % (37.0-80.0); Nucleated Red Blood Cells % 0.1 %; Red Blood Cells 3.73 10^6/uL (4.0-5.20); Red Cell Distribution Width 14.6 % (11.8-14.3); White Blood Cell 5.7 10^3/uL (4.4-10.8)
[2023-06-10 06:53] LABS: Chloride 114 mmol/L (98-107); Potassium 3.7 mmol/L (3.5-5.1); Sodium 141 mmol/L (136-145)
[2023-06-10 07:17] LABS: Anion Gap 6 (5-15); Blood Urea Nitrogen 8 mg/dL (7-18); Calcium 8.4 mg/dL (8.5-10.1); Carbon Dioxide 21 mmol/L (21-32); GFR African American 93 mL/min; GFR Non-African American 77 mL/min; Glucose 96 mg/dL (74-106)
[2023-06-10] MEDS: sulfaSALAzine 500 MG TAB PO SCH (09:10)
[2023-06-10] MEDS: POTASSIUM CHL 20 Meq TABLET PO SCH (09:10)
[2023-06-10] MEDS: ASPirin-EC 81 mg tab PO SCH (09:10)
[2023-06-10] MEDS: CIPROFLOXACIN 400MG/200ML 200 ML IV SCH ×2 (09:15→21:00)
[2023-06-10] MEDS: ONDANSETRON HCL 4 MG/2 ML VIAL IV PRN ×2 (09:34→12:35)
[2023-06-10] MEDS: HYDROcodone-ACET 5/325MG TAB PO PRN (15:06)
[2023-06-10] MEDS: ATORVASTATIN 20 MG TAB PO SCH (21:00)
[2023-06-11] VITALS (7 sets, daily range): BP systolic 124–136; BP diastolic 57–82; PULSE 61–79; RESP 18–21; TEMP 97.4–98.3; O2SAT 94–98
[2023-06-11] MEDS: traMADol HCL 50 MG TAB PO PRN ×2 (00:59→22:43)
[2023-06-11] MEDS: SODIUM CHLORIDE 0.9% 1,000 ML IV SCH ×3 (05:06→16:00)
[2023-06-11 06:22] LABS: Basophils # (auto) 0 10 ^3/uL (0-0.2); Basophils % (auto) 0.4 % (0.0-2.0); Eosinophils # (auto) 0.1 10 ^3/uL (0-0.8); Eosinophils % (auto) 2.1 % (0.0-7.0); Hematocrit 35.1 % (36.0-46.0); Hemoglobin 11.9 g/dL (12.2-16.2); Lymphocytes # (auto) 2.9 10 ^3/uL (0.4-5.4); Lymphocytes % (auto) 50.9 % (10.0-50.0); Mean Corpuscular Hemoglobin 31.8 pg (28.0-32.0); Mean Corpuscular Hgb Conc. 33.8 g/dL (32.0-36.0); Mean Corpuscular Volume 94.1 fL (80.0-100.0); Monocytes # (auto) 0.5 10 ^3/uL (0-1.3); Monocytes % (auto) 9.2 % (0.0-12.0); Neutrophils # (auto) 2.1 10 ^3/uL (1.6-8.6); Neutrophils % (auto) 37.4 % (37.0-80.0); Nucleated Red Blood Cells % 0.1 %; Red Blood Cells 3.73 10^6/uL (4.0-5.20); Red Cell Distribution Width 14.8 % (11.8-14.3); White Blood Cell 5.7 10^3/uL (4.4-10.8)
[2023-06-11 06:59] LABS: Potassium 3.6 mmol/L (3.5-5.1)
[2023-06-11 07:05] LABS: Calcium 8.7 mg/dL (8.5-10.1)
[2023-06-11] MEDS: sulfaSALAzine 500 MG TAB PO SCH (09:26)
[2023-06-11] MEDS: POTASSIUM CHL 20 Meq TABLET PO SCH (09:26)
[2023-06-11] MEDS: ASPirin-EC 81 mg tab PO SCH (09:26)
[2023-06-11] MEDS: CIPROFLOXACIN 400MG/200ML 200 ML IV SCH ×2 (09:27→23:00)
[2023-06-11] MEDS: metroNIDAZOLE 500MG/100ML 100 ML IV SCH (22:16)
[2023-06-11] MEDS: PANTOPRAZOLE 40 MG/10 ML VIAL INJ IV SCH (22:17)
[2023-06-11] MEDS: SUCRALFATE 1 GM/10 ML ORAL SUSP PO SCH (22:18)
[2023-06-11] MEDS: ATORVASTATIN 20 MG TAB PO SCH (22:43)
[2023-06-12] VITALS (7 sets, daily range): BP systolic 114–149; BP diastolic 56–79; PULSE 56–78; RESP 17–21; TEMP 94.2–98.1; O2SAT 95–98
[2023-06-12] MEDS: SODIUM CHLORIDE 0.9% 1,000 ML IV SCH ×3 (02:00→22:16)
[2023-06-12] MEDS: ACETAMINOPHEN 325 MG TAB PO PRN (06:08)
[2023-06-12] MEDS: metroNIDAZOLE 500MG/100ML 100 ML IV SCH ×3 (06:09→22:05)
[2023-06-12] MEDS: SUCRALFATE 1 GM/10 ML ORAL SUSP PO SCH ×4 (06:09→22:03)
[2023-06-12 06:19] LABS: Basophils # (auto) 0 10 ^3/uL (0-0.2); Basophils % (auto) 0.6 % (0.0-2.0); Eosinophils # (auto) 0.1 10 ^3/uL (0-0.8); Eosinophils % (auto) 2.5 % (0.0-7.0); Hematocrit 35.2 % (36.0-46.0); Hemoglobin 11.9 g/dL (12.2-16.2); Lymphocytes # (auto) 2.8 10 ^3/uL (0.4-5.4); Lymphocytes % (auto) 48.7 % (10.0-50.0); Mean Corpuscular Hemoglobin 31.5 pg (28.0-32.0); Mean Corpuscular Hgb Conc. 33.7 g/dL (32.0-36.0); Mean Corpuscular Volume 93.4 fL (80.0-100.0); Monocytes # (auto) 0.5 10 ^3/uL (0-1.3); Monocytes % (auto) 8.5 % (0.0-12.0); Neutrophils # (auto) 2.3 10 ^3/uL (1.6-8.6); Neutrophils % (auto) 39.7 % (37.0-80.0); Nucleated Red Blood Cells % 0.1 %; Red Blood Cells 3.77 10^6/uL (4.0-5.20); Red Cell Distribution Width 14.9 % (11.8-14.3); White Blood Cell 5.7 10^3/uL (4.4-10.8)
[2023-06-12 06:22] LABS: Albumin 3.2 g/dL (3.4-5.0); Calcium 8.6 mg/dL (8.5-10.1); Magnesium 1.9 mg/dL (1.6-2.6)
[2023-06-12 06:31] LABS: Bilirubin, Total 0.5 mg/dL (0.2-1.0); Potassium 3.5 mmol/L (3.5-5.1)
[2023-06-12 06:53] LABS: BUN/Creatinine Ratio 4.7 (10.0-20.0)
[2023-06-12] MEDS: sulfaSALAzine 500 MG TAB PO SCH (09:04)
[2023-06-12] MEDS: POTASSIUM CHL 20 Meq TABLET PO SCH (09:05)
[2023-06-12] MEDS: ASPirin-EC 81 mg tab PO SCH (09:05)
[2023-06-12] MEDS: PANTOPRAZOLE 40 MG/10 ML VIAL INJ IV SCH ×2 (09:05→22:03)
[2023-06-12] MEDS: CIPROFLOXACIN 400MG/200ML 200 ML IV SCH ×2 (09:05→22:04)
[2023-06-12] MEDS: ONDANSETRON HCL 4 MG/2 ML VIAL IV PRN (09:13)
[2023-06-12] MEDS: traMADol HCL 50 MG TAB PO PRN (20:25)
[2023-06-12] MEDS: ATORVASTATIN 20 MG TAB PO SCH (22:03)
[2023-06-13] VITALS (9 sets, daily range): BP systolic 120–141; BP diastolic 56–77; PULSE 60–78; RESP 15–22; TEMP 97.7–98.2; O2SAT 94–98
[2023-06-13] MEDS: SUCRALFATE 1 GM/10 ML ORAL SUSP PO SCH ×4 (06:16→21:30)
[2023-06-13] MEDS: metroNIDAZOLE 500MG/100ML 100 ML IV SCH ×3 (06:16→23:21)
[2023-06-13] MEDS: ACETAMINOPHEN 325 MG TAB PO PRN (07:42)
[2023-06-13] MEDS ORDERED: LIDOCAINE VISCOUS 2% 15ML UD ONE (08:18)
[2023-06-13] MEDS ORDERED: SODIUM CHLORIDE LOCK 10 ML ONE (08:18)
[2023-06-13] MEDS ORDERED: MIDAZOLAM HCL 5 MG/ML-1ML VIAL ONE (08:18)
[2023-06-13] MEDS ORDERED: fentaNYL CITRATE 100 MCG/2 ML VL ONE (08:19)
[2023-06-13] MEDS ORDERED: diphenhdrAMINE HCL 50 MG/1 ML VL ONE (08:22)
[2023-06-13] MEDS: ASPirin-EC 81 mg tab PO SCH (11:43)
[2023-06-13] MEDS: PANTOPRAZOLE 40 MG/10 ML VIAL INJ IV SCH ×2 (11:43→21:31)
[2023-06-13] MEDS: sulfaSALAzine 500 MG TAB PO SCH (11:43)
[2023-06-13] MEDS: POTASSIUM CHL 20 Meq TABLET PO SCH (11:43)
[2023-06-13] MEDS: CIPROFLOXACIN 400MG/200ML 200 ML IV SCH ×2 (11:43→21:38)
[2023-06-13] MEDS: SODIUM CHLORIDE 0.9% 1,000 ML IV SCH ×2 (18:00→21:37)
[2023-06-13] MEDS: traMADol HCL 50 MG TAB PO PRN (21:29)
[2023-06-13] MEDS: ATORVASTATIN 20 MG TAB PO SCH (21:30)
[2023-06-14] MEDS: SODIUM CHLORIDE 0.9% 1,000 ML IV SCH (04:00)
[2023-06-14 04:53] VITALS: BP 138/62; PULSE 63; RESP 17; TEMP 97.7; O2SAT 99
[2023-06-14] MEDS: SUCRALFATE 1 GM/10 ML ORAL SUSP PO SCH ×2 (06:17→11:31)
[2023-06-14] MEDS: metroNIDAZOLE 500MG/100ML 100 ML IV SCH ×2 (06:18→14:00)
[2023-06-14 06:50] LABS: Basophils # (auto) 0.1 10 ^3/uL (0-0.2); Basophils % (auto) 0.8 % (0.0-2.0); Eosinophils # (auto) 0.2 10 ^3/uL (0-0.8); Eosinophils % (auto) 3.4 % (0.0-7.0); Hemoglobin 11.9 g/dL (12.2-16.2); Lymphocytes # (auto) 2.8 10 ^3/uL (0.4-5.4); Lymphocytes % (auto) 44.5 % (10.0-50.0); Mean Corpuscular Hemoglobin 31.8 pg (28.0-32.0); Mean Corpuscular Volume 93.6 fL (80.0-100.0); Monocytes # (auto) 0.5 10 ^3/uL (0-1.3); Monocytes % (auto) 8.3 % (0.0-12.0); Neutrophils # (auto) 2.7 10 ^3/uL (1.6-8.6); Nucleated Red Blood Cells % 0.1 %; Red Blood Cells 3.74 10^6/uL (4.0-5.20); Red Cell Distribution Width 14.8 % (11.8-14.3); White Blood Cell 6.2 10^3/uL (4.4-10.8)
[2023-06-14 07:05] LABS: BUN/Creatinine Ratio 6.4 (10.0-20.0); Calcium 8.2 mg/dL (8.5-10.1); Potassium 3.7 mmol/L (3.5-5.1)
[2023-06-14 08:00] VITALS: PULSE 73
[2023-06-14 09:00] VITALS: BP 131/61; PULSE 65; RESP 21; TEMP 97.9; O2SAT 96
[2023-06-14] MEDS: ASPirin-EC 81 mg tab PO SCH (09:10)
[2023-06-14] MEDS: sulfaSALAzine 500 MG TAB PO SCH (09:10)
[2023-06-14] MEDS: PANTOPRAZOLE 40 MG/10 ML VIAL INJ IV SCH (09:10)
[2023-06-14] MEDS: POTASSIUM CHL 20 Meq TABLET PO SCH (09:10)
[2023-06-14] MEDS: CIPROFLOXACIN 400MG/200ML 200 ML IV SCH (09:10)
[2023-06-14] MEDS: ONDANSETRON HCL 4 MG/2 ML VIAL IV PRN ×2 (09:18→14:36)
[2023-06-14] MEDS: traMADol HCL 50 MG TAB PO PRN (09:18)
[2023-06-14] MEDS ORDERED: MECL1TAB32 PO (10:25)
[2023-06-14] MEDS ORDERED: PANT40TA2 PO (11:24)
[2023-06-14] MEDS ORDERED: SUCR1SUS26 PO (11:24)
[2023-06-14 12:53] VITALS: BP 147/87; PULSE 69; RESP 21; TEMP 98.2; O2SAT 96
== END 2023-06-14 15:40 | disposition home or self-care (01) | DRG 249 ==
LOC: ER 12:56 → TELE 16:47 → TELE-WESTW 06-09 00:37
PROVIDERS: ADMIT Internal Medicine; ATTEND Internal Medicine
PROC: 0DB68ZX Excision of Stomach, Via Natural or Artificial Opening Endoscopic, Diagnostic (ICD-10-PCS; 2023-06-13)
PROC: 0DB98ZX Excision of Duodenum, Via Natural or Artificial Opening Endoscopic, Diagnostic (ICD-10-PCS; principal; 2023-06-13 09:32)
DX: K52.9 Noninfective gastroenteritis and colitis, unspecified (principal); N17.0 Acute kidney failure with tubular necrosis; E44.1 Mild protein-calorie malnutrition; I95.9 Hypotension, unspecified; K22.10 Ulcer of esophagus without bleeding; K29.00 Acute gastritis without bleeding; K44.9 Diaphragmatic hernia without obstruction or gangrene; E78.2 Mixed hyperlipidemia; N20.0 Calculus of kidney; N39.0 Urinary tract infection, site not specified; M06.9 Rheumatoid arthritis, unspecified; F32.A Depression, unspecified; F41.9 Anxiety disorder, unspecified; M19.90 Unspecified osteoarthritis, unspecified site; E86.0 Dehydration; H53.8 Other visual disturbances; Z86.16 Personal history of COVID-19; Z88.0 Allergy status to penicillin; Z86.19 Personal history of other infectious and parasitic diseases; Z90.710 Acquired absence of both cervix and uterus; Z87.442 Personal history of urinary calculi; Z87.440 Personal history of urinary (tract) infections; Z90.49 Acquired absence of other specified parts of digestive tract; Z68.33 Body mass index [BMI] 33.0-33.9, adult
CPT/HCPCS: 36415; 43239; 70450; 70551; 74176; 80048; 80053; 80061; 81001; 82270; 82570; 83690; 83735; 84300; 84443; 84484; 85025; 85048; 87040; 87086; 93005; 93886; 95819; 96360; 97110; 97116; 97163; 97530; C9113; G0378; J2250; J2405; J3490

== ENCOUNTER 2023-10-19 10:51 | Inpatient (IN) | payer MEDICAID ==
[~2023-10-19] VITALS: Ht 154.9 cm; Wt 80.3 kg
[~2023-10-19 10:51] MED LIST changes: -AUG875T PO; -CAR125T PO; -CEPH500T PO; +FOLI-119 PO; -HYDR-4798 PO; -HYDR-4902 PO; -IBUP-1454 PO; -IBUP-1455 PO; +LISI20TA56 PO; -NIFE1TAB31 PO; +OMEP-445; +PANT40TA2 PO; +SUCR1SUS26 PO; -SUL500T PO; -VALA1TAB34 PO; -VENL37.588 PO
[2023-10-19 11:59] LABS: Basophils # (auto) 0.1 10 ^3/uL (0-0.2); Basophils % (auto) 0.7 % (0.0-2.0); Eosinophils # (auto) 0.2 10 ^3/uL (0-0.8); Hematocrit 43.5 % (36.0-46.0); Hemoglobin 14.8 g/dL (12.2-16.2); Lymphocytes # (auto) 3.2 10 ^3/uL (0.4-5.4); Lymphocytes % (auto) 39.9 % (10.0-50.0); Mean Corpuscular Hemoglobin 31.6 pg (28.0-32.0); Mean Corpuscular Hgb Conc. 33.9 g/dL (32.0-36.0); Mean Corpuscular Volume 93.1 fL (80.0-100.0); Monocytes # (auto) 0.9 10 ^3/uL (0-1.3); Monocytes % (auto) 11.1 % (0.0-12.0); Neutrophils # (auto) 3.7 10 ^3/uL (1.6-8.6); Neutrophils % (auto) 46.3 % (37.0-80.0); Nucleated Red Blood Cells % 0.1 %; Red Blood Cells 4.68 10^6/uL (4.0-5.20); Red Cell Distribution Width 12.9 % (11.8-14.3); White Blood Cell 8.1 10^3/uL (4.4-10.8)
[2023-10-19 12:11] LABS: Alanine Aminotransferase 31 U/L (7-40); Albumin 4.8 g/dL (3.2-4.8); Alkaline Phosphatase 77 U/L (46-116); Anion Gap 10 (5-15); Aspartate Aminotransferase 31 U/L (13-40); BUN/Creatinine Ratio 12.1 (10.0-20.0); Bilirubin, Total 0.5 mg/dL (0.2-1.0); Blood Urea Nitrogen 12 mg/dL (9-23); Calcium 9.9 mg/dL (8.7-10.4); Carbon Dioxide 22 mmol/L (20-30); Chloride 106 mmol/L (98-107); Glucose 102 mg/dL (74-106); Potassium 3.8 mmol/L (3.5-5.1); Sodium 138 mmol/L (136-145); Total Protein 7.4 g/dL (5.7-8.2)
[2023-10-19] MEDS ORDERED: PANT40TA2 PO ×2 (13:06)
[2023-10-19] MEDS ORDERED: cloNIDine HCL 0.1 MG TAB PO ONE (13:15)
[2023-10-19] MEDS ORDERED: DONNATAL 5ml ORAL Elix (BELLADONNA ALK-PHENOBARB) PO ONE (13:15)
[2023-10-19] MEDS ORDERED: MAALOX PLUS or MAALOX 30 ML PO ONE (13:15)
[2023-10-19] MEDS ORDERED: LIDOCAINE VISCOUS 2% 15ML UD PO ONE (13:15)
[2023-10-19 14:20] LABS: Urine Bacteria NONE SEEN /hpf (None Seen); Urine Blood Negative /uL (Negative); Urine Clarity Clear (Clear); Urine Color Yellow (Yellow); Urine Mucus FEW (None Seen); Urine Protein, UAD TRACE (Negative); Urine Specific Gravity 1.023 (1.001-1.035); Urine Urobilinogen Normal (Negative); Urine WBC 3 /hpf (0 - 5)
[2023-10-19] MEDS ORDERED: TAMS-35 PO ×2 (16:24)
[2023-10-19] MEDS ORDERED: IBU600T PO (16:24)
[2023-10-19] MEDS ORDERED: KETOROLAC TROMETH 30 MG/ML 1ML VIAL IV ONE (16:30)
[2023-10-19] MEDS ORDERED: SODIUM CHLORIDE 0.9% 1,000 ML IV ONE ×2 (16:30)
[2023-10-19] MEDS ORDERED: TAMSULOSIN HYDROCHLORIDE 0.4 MG CAP PO ONE (16:30)
[2023-10-19] MEDS ORDERED: DOCUSATE SOD 100 MG CAP PO PRN (17:30)
[2023-10-19] MEDS ORDERED: hydrALAZINE HCL 20 MG/ML VL IV PRN (17:30)
[2023-10-19] MEDS ORDERED: HYDROmorphone HCL 2 MG/ML VL/or syr IV PRN (18:30)
[2023-10-19] MEDS ORDERED: IBUPROFEN 600 MG TAB PO PRN (18:30)
[2023-10-19] MEDS: ONDANSETRON HCL 4 MG/2 ML VIAL IV PRN (20:52)
[2023-10-19 22:23] VITALS: PULSE 64; RESP 13; O2SAT 98
[2023-10-20] MEDS: D5W/SOD CHLO 0.9% 1,000 ML IV SCH ×3 (00:09→20:15)
[2023-10-20 04:15] VITALS: O2SAT 97
[2023-10-20 06:50] LABS: Basophils # (auto) 0 10 ^3/uL (0-0.2); Basophils % (auto) 0.6 % (0.0-2.0); Eosinophils # (auto) 0.2 10 ^3/uL (0-0.8); Eosinophils % (auto) 2.6 % (0.0-7.0); Hematocrit 37.5 % (36.0-46.0); Hemoglobin 12.5 g/dL (12.2-16.2); Lymphocytes % (auto) 46.2 % (10.0-50.0); Mean Corpuscular Hemoglobin 31.4 pg (28.0-32.0); Mean Corpuscular Hgb Conc. 33.4 g/dL (32.0-36.0); Mean Corpuscular Volume 94.1 fL (80.0-100.0); Monocytes # (auto) 0.6 10 ^3/uL (0-1.3); Monocytes % (auto) 10.2 % (0.0-12.0); Neutrophils # (auto) 2.6 10 ^3/uL (1.6-8.6); Neutrophils % (auto) 40.4 % (37.0-80.0); Nucleated Red Blood Cells % 0.2 %; Red Blood Cells 3.98 10^6/uL (4.0-5.20); Red Cell Distribution Width 12.8 % (11.8-14.3); White Blood Cell 6.4 10^3/uL (4.4-10.8)
[2023-10-20 07:18] LABS: Alanine Aminotransferase 27 U/L (7-40); Alkaline Phosphatase 61 U/L (46-116); Anion Gap 7 (5-15); BUN/Creatinine Ratio 13.4 (10.0-20.0); Blood Urea Nitrogen 13 mg/dL (9-23); Carbon Dioxide 24 mmol/L (20-30); Chloride 108 mmol/L (98-107); Glucose 101 mg/dL (74-106); Potassium 3.8 mmol/L (3.5-5.1); Sodium 139 mmol/L (136-145)
[2023-10-20 07:19] LABS: Albumin 3.8 g/dL (3.2-4.8); Aspartate Aminotransferase 27 U/L (13-40)
[2023-10-20 07:20] LABS: Bilirubin, Total 0.6 mg/dL (0.2-1.0); Total Protein 5.9 g/dL (5.7-8.2)
[2023-10-20 09:00] VITALS: BP 140/84; PULSE 75; RESP 18; TEMP 97.5; O2SAT 96
[2023-10-20] MEDS ORDERED: FAMOTIDINE (10MG/ML) 2ML VL IV SCH (10:00)
[2023-10-20] MEDS: PANTOPRAZOLE 40 MG/10 ML VIAL INJ IV SCH (10:18)
[2023-10-20 13:00] VITALS: BP 140/80; PULSE 68; RESP 12; TEMP 97.3; O2SAT 98
[2023-10-20] MEDS: KETOROLAC TROMETH 30 MG/ML 1ML VIAL IV PRN ×2 (14:19→20:50)
[2023-10-20] MEDS: ONDANSETRON HCL 4 MG/2 ML VIAL IV PRN (15:05)
[2023-10-20] MEDS ORDERED: SUCRALFATE 1 GM/10 ML ORAL SUSP GT SCH (17:00)
[2023-10-20 17:02] VITALS: BP 142/71; PULSE 63; RESP 18; TEMP 97.9; O2SAT 99
[2023-10-20] MEDS ORDERED: TAMSULOSIN HYDROCHLORIDE 0.4 MG CAP PO SCH (18:00)
[2023-10-20] MEDS: SUCRALFATE 1 GM/10 ML ORAL SUSP PO SCH (20:49)
[2023-10-20 22:00] VITALS: BP 130/82; PULSE 71; RESP 19; TEMP 97.6; O2SAT 96
[2023-10-20] MEDS ORDERED: TEMAZEPAM 15 MG CAP PO ONE (22:15)
[2023-10-21 05:00] VITALS: BP 157/78; PULSE 68; RESP 18; TEMP 97.3; O2SAT 95
[2023-10-21] MEDS: SUCRALFATE 1 GM/10 ML ORAL SUSP PO SCH ×2 (06:58→12:08)
[2023-10-21 08:45] VITALS: BP 168/82; PULSE 71; RESP 19; TEMP 97.5; O2SAT 98
[2023-10-21] MEDS: D5W/SOD CHLO 0.9% 1,000 ML IV SCH (09:30)
[2023-10-21] MEDS: PANTOPRAZOLE 40 MG/10 ML VIAL INJ IV SCH (09:57)
[2023-10-21] MEDS ORDERED: LISINOPRIL 20 MG TAB PO SCH (10:00)
[2023-10-21] MEDS: KETOROLAC TROMETH 30 MG/ML 1ML VIAL IV PRN (12:09)
[2023-10-21] MEDS: ONDANSETRON HCL 4 MG/2 ML VIAL IV PRN (12:09)
[2023-10-21 12:50] VITALS: BP 149/75; PULSE 67; RESP 19; TEMP 98.7; O2SAT 99
[2023-10-21] MEDS ORDERED: SUCR1TAB22 OR (15:01)
[2023-10-21] MEDS ORDERED: ZOFR4T PO (15:01)
[2023-10-21] MEDS ORDERED: PANT40TA2 PO (15:01)
[2023-10-21 15:28] VITALS: BP 168/82; TEMP 37.1
[2023-10-21 16:40] VITALS: BP 142/78; PULSE 68; RESP 19; TEMP 97.6; O2SAT 99
== END 2023-10-21 16:44 | disposition home or self-care (01) | DRG 241 ==
LOC: ER 10:51 → OVERFLOW 18:25 → CENTRAL 10-20 04:08
PROVIDERS: ADMIT Nurse Practitioner Family; ATTEND Nurse Practitioner Family
DX: K29.00 Acute gastritis without bleeding (principal); E66.9 Obesity, unspecified; E78.5 Hyperlipidemia, unspecified; I10 Essential (primary) hypertension; N20.0 Calculus of kidney; Z88.5 Allergy status to narcotic agent; Z88.8 Allergy status to other drugs, medicaments and biological substances; Z79.899 Other long term (current) drug therapy; Z82.49 Family history of ischemic heart disease and other diseases of the circulatory system; Z68.33 Body mass index [BMI] 33.0-33.9, adult; Z88.0 Allergy status to penicillin; Z90.49 Acquired absence of other specified parts of digestive tract
CPT/HCPCS: 36415; 74176; 80053; 81001; 83690; 85025; 87086; C9113; G0378; J1885; J2405

== ENCOUNTER 2024-02-05 13:28 | Inpatient (IN) | payer MEDICAID ==
[~2024-02-05] VITALS: Ht 152.4 cm; Wt 63.0 kg
[~2024-02-05 13:28] MED LIST changes: +IBU600T PO; -SUCR1SUS26 PO; +SUCR1TAB22 OR; +ZOFR4T PO
[2024-02-05 14:13] VITALS: BP 142/86; RESP 18; O2SAT 98
[2024-02-05 15:50] LABS: Basophils # (auto) 0.1 10 ^3/uL (0-0.2); Basophils % (auto) 0.5 % (0.0-2.0); Eosinophils # (auto) 0.1 10 ^3/uL (0-0.8); Eosinophils % (auto) 0.9 % (0.0-7.0); Hematocrit 40.3 % (36.0-46.0); Hemoglobin 13.5 g/dL (12.2-16.2); Lymphocytes # (auto) 3.2 10 ^3/uL (0.4-5.4); Lymphocytes % (auto) 31.3 % (10.0-50.0); Mean Corpuscular Hemoglobin 31.1 pg (28.0-32.0); Mean Corpuscular Hgb Conc. 33.5 g/dL (32.0-36.0); Mean Corpuscular Volume 92.9 fL (80.0-100.0); Monocytes # (auto) 0.8 10 ^3/uL (0-1.3); Monocytes % (auto) 7.7 % (0.0-12.0); Neutrophils # (auto) 6.1 10 ^3/uL (1.6-8.6); Neutrophils % (auto) 59.6 % (37.0-80.0); Nucleated Red Blood Cells % 0.1 %; Red Blood Cells 4.34 10^6/uL (4.0-5.20); Red Cell Distribution Width 13.6 % (11.8-14.3); White Blood Cell 10.3 10^3/uL (4.4-10.8)
[2024-02-05 16:07] LABS: INR 0.96 (0.9-1.15); Prothrombin Time 10.1 sec (9.3-11.8)
[2024-02-05] MEDS: TETANUS-DIPTH-ACEL PERTUSSIS 0.5ML SYR Tdap IM ONE (16:12)
[2024-02-05 16:23] LABS: Alanine Aminotransferase 25 U/L (7-40); Albumin 4.3 g/dL (3.2-4.8); Alkaline Phosphatase 85 U/L (46-116); Anion Gap 6 (5-15); Aspartate Aminotransferase 21 U/L (13-40); BUN/Creatinine Ratio 19.6 (10.0-20.0); Blood Urea Nitrogen 21 mg/dL (9-23); Calcium 9.8 mg/dL (8.7-10.4); Carbon Dioxide 26 mmol/L (20-30); Chloride 105 mmol/L (98-107); Glucose 93 mg/dL (74-106); Lipase 62 U/L (12-53); Potassium 4.2 mmol/L (3.5-5.1); Sodium 137 mmol/L (136-145)
[2024-02-05 16:24] LABS: Bilirubin, Total 0.3 mg/dL (0.2-1.0); Total Protein 6.6 g/dL (5.7-8.2)
[2024-02-05 16:35] LABS: Bilirubin, Direct < 0.1 mg/dL (<0.3)
[2024-02-05] MEDS ORDERED: ASPirin 325 MG TAB PO ONE (17:00)
[2024-02-05 17:17] VITALS: PULSE 59
[2024-02-05] MEDS ORDERED: DOCUSATE SOD 100 MG CAP PO PRN (18:15)
[2024-02-05] MEDS ORDERED: NITROGLYCERIN 0.4 MG SL TAB SL PRN (18:15)
[2024-02-05] MEDS ORDERED: TEMAZEPAM 15 MG CAP PO PRN (18:15)
[2024-02-05] MEDS ORDERED: HYDROcodone-ACET 5/325MG TAB PO PRN (18:15)
[2024-02-05] MEDS ORDERED: SODIUM CHLORIDE 0.9% 1,000 ML IV SCH (18:15)
[2024-02-05] MEDS ORDERED: MORPHINE SULFATE INJ 2 MG/ml SYRG IV PRN ×2 (18:15)
[2024-02-05] MEDS ORDERED: ACETAMINOPHEN 325 MG TAB PO PRN (18:15)
[2024-02-05] MEDS ORDERED: ONDANSETRON HCL 4 MG/2 ML VIAL IV PRN (18:15)
[2024-02-05] MEDS ORDERED: MECLIZINE HCL 25 MG TAB PO PRN (18:30)
[2024-02-06] MEDS ORDERED: LISINOPRIL 20 MG TAB PO SCH (08:00)
[2024-02-06] MEDS ORDERED: PANTOPRAZOLE 40 MG/10 ML VIAL INJ IV SCH (10:00)
== END 2024-02-05 18:14 | disposition left against medical advice (07) | DRG 204 ==
LOC: EDBD 13:28 → ER 13:28 → TELE 18:14
PROVIDERS: ADMIT Nurse Practitioner; ATTEND Nurse Practitioner
DX: R55 Syncope and collapse (principal); E78.5 Hyperlipidemia, unspecified; I10 Essential (primary) hypertension; K21.9 Gastro-esophageal reflux disease without esophagitis; Z88.0 Allergy status to penicillin; Z88.5 Allergy status to narcotic agent; Z87.442 Personal history of urinary calculi; Z80.0 Family history of malignant neoplasm of digestive organs; Z82.49 Family history of ischemic heart disease and other diseases of the circulatory system; Z90.710 Acquired absence of both cervix and uterus
CPT/HCPCS: 36415; 70450; 70486; 71045; 72125; 73030; 73060; 73130; 73562; 74176; 80053; 82248; 83690; 84484; 85025; 85610; 90715; 93005; 96372; G0378

== ENCOUNTER 2024-08-07 00:42 | Inpatient (IN) | payer MEDICARE, MEDICAID ==
[~2024-08-07] VITALS: Ht 157.5 cm; Wt 77.4 kg
[~2024-08-07 00:42] MED LIST changes: +MECL-90 PO; -MECL1TAB32 PO; -SUCR1TAB22 OR; +SUCR1TAB31 OR
[2024-08-07] MEDS: SODIUM CHLORIDE 0.9% 1,000 ML IV ONE (01:39)
[2024-08-07 01:45] LABS: Basophils # (auto) 0.1 10 ^3/uL (0-0.2); Basophils % (auto) 0.5 % (0.0-2.0); Eosinophils # (auto) 0.1 10 ^3/uL (0-0.8); Eosinophils % (auto) 1.1 % (0.0-7.0); Hematocrit 42.4 % (36.0-46.0); Hemoglobin 14.9 g/dL (12.2-16.2); Lymphocytes # (auto) 3.1 10 ^3/uL (0.4-5.4); Mean Corpuscular Hgb Conc. 35.1 g/dL (32.0-36.0); Monocytes # (auto) 0.7 10 ^3/uL (0-1.3); Neutrophils # (auto) 6.6 10 ^3/uL (1.6-8.6); Neutrophils % (auto) 62.4 % (37.0-80.0); Platelet Count (auto) 231 10^3/uL (140-450); Red Blood Cells 4.51 10^6/uL (4.0-5.20); White Blood Cell 10.6 10^3/uL (4.4-10.8)
[2024-08-07] MEDS: KETOROLAC TROMETH 30 MG/ML 1ML VIAL IV ONE (01:53)
[2024-08-07] MEDS: ONDANSETRON HCL 4 MG/2 ML VIAL IV ONE ×3 (01:53→04:54)
[2024-08-07 01:59] LABS: Alanine Aminotransferase 40 U/L (7-40); Albumin 4.7 g/dL (3.2-4.8); Alkaline Phosphatase 83 U/L (46-116); Anion Gap 13 (5-15); Aspartate Aminotransferase 22 U/L (13-40); BUN/Creatinine Ratio 17.1 (10.0-20.0); Bilirubin, Total 0.5 mg/dL (0.2-1.0); Blood Urea Nitrogen 20 mg/dL (9-23); Calcium 10.2 mg/dL (8.7-10.4); Carbon Dioxide 20 mmol/L (20-30); Chloride 106 mmol/L (98-107); Glucose 112 mg/dL (74-106); Lipase 65 U/L (12-53); Potassium 3.8 mmol/L (3.5-5.1); Sodium 139 mmol/L (136-145); Total Protein 7.3 g/dL (5.7-8.2)
[2024-08-07] MEDS: IOHEXOL 300 MG/ML 100ML BOTTLE IJ ONE (02:38)
[2024-08-07 03:49] LABS: Urine Bacteria None Seen /hpf (None Seen)
[2024-08-07 04:00] LABS: Urine Blood Negative /uL (Negative); Urine Clarity Clear (Clear); Urine Color Yellow (Yellow); Urine Mucus FEW (None Seen); Urine Protein, UAD Negative (Negative); Urine Specific Gravity 1.015 (1.001-1.035); Urine Urobilinogen Normal (Negative); Urine WBC 1 /hpf (0 - 5)
[2024-08-07] MEDS: SODIUM CHLORIDE 0.9% 2,000 ML IV ONE (04:15)
[2024-08-07] MEDS ORDERED: MORPHINE SULFATE INJ 2 MG/ml SYRG IV PRN (04:45)
[2024-08-07] MEDS ORDERED: NITROGLYCERIN 0.4 MG SL TAB SL PRN (04:45)
[2024-08-07] MEDS: HYDROmorphone HCL 2 MG/ML VL/or syr ONE (04:53)
[2024-08-07] MEDS: HYDROmorphone HCL 2 MG/ML VL/or syr IV ONE (04:59)
[2024-08-07] MEDS: PIPERACILLIN-TAZOB 3.375GM 100 ML IV ONE (05:18)
[2024-08-07] MEDS: hydrALAZINE HCL 20 MG/ML VL IV PRN (06:06)
[2024-08-07] MEDS: LACTATED RINGER'S 1,000 ML IV SCH ×2 (06:30→16:30)
[2024-08-07] MEDS: ONDANSETRON HCL 4 MG/2 ML VIAL IV PRN (08:09)
[2024-08-07] MEDS: MORPHINE SULFATE INJ 2 MG/ml SYRG IV PRN (08:10)
[2024-08-07 08:13] VITALS: PULSE 81
[2024-08-07] MEDS: ENOXAPARIN SOD 40 MG/0.4 ML SYRINGE SC SCH (11:09)
[2024-08-07] MEDS ORDERED: CLINIMIX PER PHARMACY 0 ML IV SCH (16:30)
[2024-08-07] MEDS ORDERED: DEXTROSE (50%) 50ML SYRG IV SCH (17:30)
[2024-08-07 17:37] VITALS: BP 156/84; PULSE 93; RESP 17; TEMP 98.6; O2SAT 96
[2024-08-07 17:51] VITALS: BP 156/84; PULSE 93; RESP 17; TEMP 98.6; O2SAT 96
[2024-08-07] MEDS: ACCU-CHEK COMFORT CURVE STRIP VI SCH (18:00)
[2024-08-07] MEDS: InsuLIN REG 1unit/0.01ml Soln (100units/ml) SC SCH (18:00)
[2024-08-07] MEDS: SUCRALFATE 1 GM TAB PO SCH (18:52)
[2024-08-07 20:00] VITALS: PULSE 88; PULSE 91; RESP 18; O2SAT 97
[2024-08-07 21:00] VITALS: BP 165/85; PULSE 88; RESP 18; TEMP 99.9; O2SAT 97
[2024-08-07] MEDS: AMINO ACID INFUSION IN D10W 1,000 ML IV SCH (22:06)
[2024-08-08] VITALS (9 sets, daily range): BP systolic 97–162; BP diastolic 52–90; PULSE 76–107; RESP 16–20; TEMP 97.3–99.4; O2SAT 94–96
[2024-08-08] MEDS: PANTOPRAZOLE 40 MG TAB PO SCH (05:52)
[2024-08-08 07:10] LABS: Alanine Aminotransferase 120 U/L (7-40); Alkaline Phosphatase 87 U/L (46-116); Anion Gap 8 (5-15); Aspartate Aminotransferase 60 U/L (13-40); BUN/Creatinine Ratio 17.3 (10.0-20.0); Blood Urea Nitrogen 17 mg/dL (9-23); Calcium 9.2 mg/dL (8.7-10.4); Carbon Dioxide 24 mmol/L (20-30); Chloride 104 mmol/L (98-107); Glucose 108 mg/dL (74-106); Magnesium 1.7 mg/dL (1.6-2.6); Sodium 136 mmol/L (136-145)
[2024-08-08 07:11] LABS: Bilirubin, Total 0.7 mg/dL (0.2-1.0); Phosphorus 3.4 mg/dL (2.4-5.1); Total Protein 6.2 g/dL (5.7-8.2)
[2024-08-08] MEDS: LISINOPRIL 20 MG TAB PO SCH (09:43)
[2024-08-08] MEDS: GASTROGRAFIN 120 ML SOL ONE (12:52)
[2024-08-08] MEDS ORDERED: POTASSIUM CHL 20MEQ/100ML 100 ML IV SCH (13:00)
[2024-08-08] MEDS: POTASSIUM CHL 20MEQ/100ML 100 ML IV SCH (15:55)
[2024-08-09] VITALS (7 sets, daily range): BP systolic 101–133; BP diastolic 61–77; PULSE 60–84; RESP 16–20; TEMP 98.5–98.9; O2SAT 94–96
[2024-08-09 06:22] LABS: Alanine Aminotransferase 66 U/L (7-40); Albumin 3.7 g/dL (3.2-4.8); Alkaline Phosphatase 71 U/L (46-116); Anion Gap 8 (5-15); Aspartate Aminotransferase 31 U/L (13-40); BUN/Creatinine Ratio 20.4 (10.0-20.0); Bilirubin, Total 0.6 mg/dL (0.2-1.0); Blood Urea Nitrogen 21 mg/dL (9-23); Calcium 9.2 mg/dL (8.7-10.4); Carbon Dioxide 23 mmol/L (20-30); Chloride 107 mmol/L (98-107); Glucose 112 mg/dL (74-106); Lipase 47 U/L (12-53); Magnesium 1.8 mg/dL (1.6-2.6); Phosphorus 3.5 mg/dL (2.4-5.1); Potassium 3.5 mmol/L (3.5-5.1); Sodium 138 mmol/L (136-145); Total Protein 5.9 g/dL (5.7-8.2)
[2024-08-09] MEDS: POTASSIUM CHL 20MEQ/100ML 100 ML IV SCH (06:35)
[2024-08-09 09:20] LABS: Hepatitis B Core Total AB Negative (Negative)
[2024-08-09 09:32] LABS: Hepatitis A Total Antibody Positive (Negative); Hepatitis B Surface Antibody Negative (Negative); Hepatitis B Surface Antigen Negative (Negative); Hepatitis C Antibody Negative (Negative)
[2024-08-10] VITALS (9 sets, daily range): BP systolic 111–140; BP diastolic 65–75; PULSE 60–78; RESP 14–17; TEMP 97.8–98.8; O2SAT 96–99
[2024-08-10 06:53] LABS: Basophils # (auto) 0 10 ^3/uL (0-0.2); Basophils % (auto) 0.5 % (0.0-2.0); Eosinophils # (auto) 0.4 10 ^3/uL (0-0.8); Eosinophils % (auto) 6.7 % (0.0-7.0); Hematocrit 38.2 % (36.0-46.0); Hemoglobin 13.4 g/dL (12.2-16.2); Lymphocytes # (auto) 3.4 10 ^3/uL (0.4-5.4); Lymphocytes % (auto) 54.7 % (10.0-50.0); Mean Corpuscular Hemoglobin 33.5 pg (28.0-32.0); Mean Corpuscular Hgb Conc. 35.1 g/dL (32.0-36.0); Mean Corpuscular Volume 95.5 fL (80.0-100.0); Monocytes # (auto) 0.5 10 ^3/uL (0-1.3); Monocytes % (auto) 7.7 % (0.0-12.0); Neutrophils # (auto) 1.9 10 ^3/uL (1.6-8.6); Neutrophils % (auto) 30.4 % (37.0-80.0); Nucleated Red Blood Cells % 0.8 %; Platelet Count (auto) 219 10^3/uL (140-450); Red Cell Distribution Width 13.6 % (11.8-14.3); White Blood Cell 6.3 10^3/uL (4.4-10.8)
[2024-08-10 07:01] LABS: Alanine Aminotransferase 52 U/L (7-40); Albumin 3.9 g/dL (3.2-4.8); Alkaline Phosphatase 67 U/L (46-116); Anion Gap 5 (5-15); Aspartate Aminotransferase 24 U/L (13-40); BUN/Creatinine Ratio 15.7 (10.0-20.0); Bilirubin, Total 0.7 mg/dL (0.2-1.0); Blood Urea Nitrogen 14 mg/dL (9-23); Calcium 9.5 mg/dL (8.7-10.4); Carbon Dioxide 24 mmol/L (20-30); Chloride 110 mmol/L (98-107); Glucose 93 mg/dL (74-106); Magnesium 1.8 mg/dL (1.6-2.6); Phosphorus 2.9 mg/dL (2.4-5.1); Potassium 3.9 mmol/L (3.5-5.1); Sodium 139 mmol/L (136-145)
[2024-08-11] VITALS (7 sets, daily range): BP systolic 128–146; BP diastolic 70–80; PULSE 65–78; RESP 12–20; TEMP 98.5–98.9; O2SAT 95–99
[2024-08-11 06:16] LABS: Alanine Aminotransferase 40 U/L (7-40); Alkaline Phosphatase 63 U/L (46-116); Anion Gap 6 (5-15); Aspartate Aminotransferase 18 U/L (13-40); BUN/Creatinine Ratio 14.9 (10.0-20.0); Blood Urea Nitrogen 14 mg/dL (9-23); Calcium 9.4 mg/dL (8.7-10.4); Carbon Dioxide 24 mmol/L (20-30); Chloride 107 mmol/L (98-107); Glucose 109 mg/dL (74-106); Magnesium 1.7 mg/dL (1.6-2.6); Potassium 3.6 mmol/L (3.5-5.1); Sodium 137 mmol/L (136-145)
[2024-08-11 06:17] LABS: Bilirubin, Total 0.5 mg/dL (0.2-1.0); Phosphorus 2.8 mg/dL (2.4-5.1); Total Protein 6.2 g/dL (5.7-8.2)
== END 2024-08-11 21:14 | disposition home or self-care (01) | DRG 247 ==
LOC: ER 00:42 → EDBD 00:42 → TELE 04:50 → TELE-EAST 17:24
PROVIDERS: ADMIT Nurse Practitioner; ATTEND Nurse Practitioner
PROC: 0D9670Z Drainage of Stomach with Drainage Device, Via Natural or Artificial Opening (ICD-10-PCS; principal; 2024-08-07)
DX: K56.609 Unspecified intestinal obstruction, unspecified as to partial versus complete obstruction (principal); K76.0 Fatty (change of) liver, not elsewhere classified; E66.9 Obesity, unspecified; I10 Essential (primary) hypertension; J98.4 Other disorders of lung; N20.0 Calculus of kidney; K21.9 Gastro-esophageal reflux disease without esophagitis; Z90.710 Acquired absence of both cervix and uterus; Z90.49 Acquired absence of other specified parts of digestive tract; Z82.49 Family history of ischemic heart disease and other diseases of the circulatory system; Z68.31 Body mass index [BMI] 31.0-31.9, adult; Z79.899 Other long term (current) drug therapy
CPT/HCPCS: 36415; 71045; 74018; 74177; 74250; 76705; 80053; 81001; 82962; 83690; 83735; 84100; 84484; 85025; 86038; 86704; 86706; 86708; 86803; 87340; 93005; 96361; 96365; 96375; 96376; 99291; G0378; J1885; J2405; J2543; J3480